=== PATIENT | female | born 1980 | race Caucasian/White ===

== ENCOUNTER → 2017-06-17 | Outpatient (CLI) | payer OTHER ==
[~2017-06-17] MED LIST: NORCOTAB PO; SENN1TAB2 PO; ZOLO100T PO
[2017-06-17 18:53] LABS: BASO % 0.6 % (0.0-1.0); EOS # 0.1 K/mm3 (0.0-0.50); EOS % 2.1 % (0.0-3.0); LARGE UNSTAINED CELL # 0.1 K/mm3 (0.0-0.4); LARGE UNSTAINED CELL % 1.2 % (0.0-4.0); LYMPH # 2.2 K/mm3 (1.5-4.5); LYMPH % 42.8 % (24.0-44.0); MEAN CORPUSCULAR HEMOGLOBIN 31.4 pg (27.0-33.0); MEAN CORPUSCULAR HGB CONC 34.2 g/dl (32.0-36.5); MEAN CORPUSCULAR VOLUME 91.6 fl (80.0-96.0); MONO # 0.2 K/mm3 (0.0-0.8); MONO % 3.5 % (0.0-5.0); NEUTROPHILS # 2.5 K/mm3 (1.8-7.7); NEUTROPHILS % 49.9 % (36.0-66.0); PLATELET COUNT, AUTOMATED 309 k/mm3 (150-450); RED CELL DISTRIBUTION WIDTH 12.4 % (11.5-14.5)
[2017-06-18 10:38] LABS: HEPATITIS B SURFACE ANTIBODY NEGATIVE (POSITIVE)
== END ==
LOC: M LAB 16:34
PROVIDERS: ATTEND Hospitalist
DX: Z00.00 Encounter for general adult medical examination without abnormal findings (principal); R53.82 Chronic fatigue, unspecified

== ENCOUNTER 2017-11-11 16:09 | Inpatient (IN) | payer OTHER, SELFPAY ==
[2017-11-11 16:51] LABS: BASO % 0.2 % (0.0-1.0); EOS # 0.1 10^3/uL (0.0-0.50); HEMATOCRIT 16.3 % (36.0-47.0); IMMATURE GRANULOCYTE % 0.2 % (0-0); LYMPH # 1.9 10^3/uL (1.5-4.5); LYMPH % 38.4 % (24.0-44.0); MEAN CORPUSCULAR HEMOGLOBIN 28.3 pg (27.0-33.0); MEAN CORPUSCULAR HGB CONC 32.5 g/dl (32.0-36.5); MEAN CORPUSCULAR VOLUME 87.2 fl (80.0-96.0); MONO # 0.2 10^3/uL (0.0-0.8); MONO % 4.5 % (0.0-5.0); NEUTROPHILS # 2.7 10^3/uL (1.8-7.7); NEUTROPHILS % 55.7 % (36.0-66.0); PLATELET COUNT, AUTOMATED 354 10^3/uL (150-450); RED BLOOD COUNT 1.87 10^6/uL (4.00-5.40); RED CELL DISTRIBUTION WIDTH 13.4 % (11.5-14.5); WHITE BLOOD COUNT 4.9 10^3/uL (4.0-10.0)
[2017-11-11 16:56] LABS: HEMOGLOBIN 5.3 g/dl (12.0-16.0)
[2017-11-11] MEDS: PANTOPRAZOLE 40MG INJ (PROTONIX) (C9113) IV (17:07)
[2017-11-11] MEDS: SODIUM CHLORIDE 0.9% 1000 ML IV (17:07)
[2017-11-11 17:08] LABS: INR 0.92; PROTHROMBIN TIME 12.4 SECONDS (12.4-14.5)
[2017-11-11 17:13] LABS: CONTROL LINE HCG INT CTR LINE PRESENT; HCG, SERUM QUALITATIVE NEGATIVE (NEGATIVE)
[2017-11-11 17:21] LABS: ALBUMIN 3.5 GM/DL (3.2-5.2); ALKALINE PHOSPHATASE 35 U/L (45-117); ALT/SGPT 26 U/L (12-78); ANION GAP 6 MEQ/L (8-16); AST/SGOT 19 U/L (7-37); BILIRUBIN,DIRECT < 0.1 MG/DL (0.0-0.2); BILIRUBIN,TOTAL 0.4 MG/DL (0.2-1.0); BLOOD UREA NITROGEN 9 MG/DL (7-18); CARBON DIOXIDE LEVEL 26 MEQ/L (21-32); CHLORIDE LEVEL 110 MEQ/L (98-107); CREATININE FOR GFR 0.82 MG/DL (0.55-1.30); GLOMERULAR FILTRATION RATE > 60.0 (>60); GLUCOSE, FASTING 85 MG/DL (70-100); POTASSIUM SERUM 3.5 MEQ/L (3.5-5.1); SODIUM LEVEL 142 MEQ/L (136-145); TOTAL PROTEIN 6.2 GM/DL (6.4-8.2)
[2017-11-11 17:45] LABS: HEMATOCRIT 16.3 % (36.0-47.0)
[2017-11-11 17:51] LABS: IRON (FE) 9 UG/DL (50-170); PERCENT SATURATION 2.1 % (13.2-45.0); TOTAL IRON BINDING CAPACITY 431 UG/DL (250-450)
[2017-11-11 18:02] LABS: RETIC HEMOGLOBIN EQUIVALENT 14.8 pg (24-36); RETICULOCYTE # 36.3 10^9/L (17-77); RETICULOCYTE % 1.8 % (0.5-1.5)
[2017-11-11 18:21] LABS: VITAMIN B12 LEVEL 384 PG/ML (247-911)
[2017-11-11] MEDS: NORCO, ANEXSIA 5/325MG TABLET (HYDROcodone/ACETAMINOPHEN) PO (19:00)
[2017-11-11] MEDS ORDERED: ONDANSETRON 4MG/2ML VIAL (J2405) IV (19:00)
[2017-11-11] MEDS ORDERED: NICOTINE 14 MG/24 HR TRANSDERMAL TD (19:30)
[2017-11-11 19:50] LABS: FERRITIN 2 NG/ML (8-252)
[2017-11-11] MEDS: GOLYTELY SOLN 4000 ML BTL PO (21:35)
[2017-11-11 23:03] LABS: IMMEDIATE SPIN CROSSMATCH 1 2
[2017-11-11 23:24] LABS: HEMATOCRIT 16.8 % (36.0-47.0)
[2017-11-11 23:25] LABS: HEMOGLOBIN 5.4 g/dl (12.0-16.0)
[2017-11-11] MEDS: ACETAMINOPHEN TAB 650MG DOSE (2X325MG) PO (23:35)
[2017-11-12 03:25] LABS: HEMATOCRIT 19.4 % (36.0-47.0); HEMOGLOBIN 6.3 g/dl (12.0-16.0); MEAN CORPUSCULAR HEMOGLOBIN 28.6 pg (27.0-33.0); MEAN CORPUSCULAR HGB CONC 32.5 g/dl (32.0-36.5); MEAN CORPUSCULAR VOLUME 88.2 fl (80.0-96.0); PLATELET COUNT, AUTOMATED 292 10^3/uL (150-450); RED CELL DISTRIBUTION WIDTH 13.5 % (11.5-14.5); WHITE BLOOD COUNT 5.5 10^3/uL (4.0-10.0)
[2017-11-12 03:33] LABS: ANION GAP 7 MEQ/L (8-16); BLOOD UREA NITROGEN 9 MG/DL (7-18); CALCIUM LEVEL 7.3 MG/DL (8.5-10.1); CARBON DIOXIDE LEVEL 25 MEQ/L (21-32); CHLORIDE LEVEL 111 MEQ/L (98-107); CREATININE FOR GFR 0.73 MG/DL (0.55-1.30); GLOMERULAR FILTRATION RATE > 60.0 (>60); GLUCOSE, FASTING 90 MG/DL (70-100); POTASSIUM SERUM 3.9 MEQ/L (3.5-5.1); SODIUM LEVEL 143 MEQ/L (136-145)
[2017-11-12] MEDS: ACETAMINOPHEN TAB 650MG DOSE (2X325MG) PO ×3 (05:11→22:34)
[2017-11-12] MEDS: GOLYTELY SOLN 4000 ML BTL PO (05:11)
[2017-11-12 06:49] LABS: IMMEDIATE SPIN CROSSMATCH 1 2
[2017-11-12 10:29] LABS: HEMATOCRIT 25.5 % (36.0-47.0)
[2017-11-12 10:37] LABS: HEMOGLOBIN 8.3 g/dl (12.0-16.0)
[2017-11-12 12:49] LABS: PRETREATED FOLATE FOR RBCFOL 8.2 NG/ML; RBC FOLATE 1056.4 NG/ML (280-791)
[2017-11-12] MEDS ORDERED: LIDOCAINE 2% INJ 100 MG/5 ML SDV (FOR ANES.) As Ordered (14:35)
[2017-11-12] MEDS ORDERED: PROPOFOL 200 MG/20 ML VIAL As Ordered ×3 (14:35→14:43)
[2017-11-12 16:10] LABS: IMMEDIATE SPIN CROSSMATCH 1 2
[2017-11-13 06:08] LABS: HEMATOCRIT 29.9 % (36.0-47.0); MEAN CORPUSCULAR HEMOGLOBIN 29.2 pg (27.0-33.0); MEAN CORPUSCULAR HGB CONC 33.4 g/dl (32.0-36.5); MEAN CORPUSCULAR VOLUME 87.2 fl (80.0-96.0); PLATELET COUNT, AUTOMATED 288 10^3/uL (150-450); RED BLOOD COUNT 3.43 10^6/uL (4.00-5.40); WHITE BLOOD COUNT 7.1 10^3/uL (4.0-10.0)
[2017-11-13 06:25] LABS: ANION GAP 7 MEQ/L (8-16); BLOOD UREA NITROGEN 11 MG/DL (7-18); CALCIUM LEVEL 7.9 MG/DL (8.5-10.1); CARBON DIOXIDE LEVEL 25 MEQ/L (21-32); CHLORIDE LEVEL 111 MEQ/L (98-107); CREATININE FOR GFR 0.66 MG/DL (0.55-1.30); GLOMERULAR FILTRATION RATE > 60.0 (>60); GLUCOSE, FASTING 86 MG/DL (70-100); POTASSIUM SERUM 3.8 MEQ/L (3.5-5.1); SODIUM LEVEL 143 MEQ/L (136-145)
[2017-11-13] MEDS: FLUoxetine 20 MG CAP PO (09:30)
[2017-11-13] MEDS: IRON DEXTRAN INJ 25 MG in NS 50 ML IV (12:43)
[2017-11-13] MEDS: IRON DEXTRAN INJ 75 MG in NS 100 ML IV (14:51)
[2017-11-13] MEDS: ACETAMINOPHEN TAB 650MG DOSE (2X325MG) PO (18:41)
[2017-11-13] MEDS: GI COCKTAIL 50ML BTL(HYOSCYAMINE/MAALOX/LIDOCAINE VISCOUS)(1:3:1) PO (18:57)
[2017-11-13] MEDS: MIRALAX *UNIT DOSE* 17GM PACKET PO (20:53)
[2017-11-13] MEDS: PANTOPRAZOLE 40MG TAB (PROTONIX) PO (20:53)
[2017-11-13 20:55] LABS: HEMATOCRIT 31.6 % (36.0-47.0); HEMOGLOBIN 10.5 g/dl (12.0-16.0); MEAN CORPUSCULAR HEMOGLOBIN 29.2 pg (27.0-33.0); MEAN CORPUSCULAR HGB CONC 33.2 g/dl (32.0-36.5); MEAN CORPUSCULAR VOLUME 87.8 fl (80.0-96.0); PLATELET COUNT, AUTOMATED 328 10^3/uL (150-450); RED CELL DISTRIBUTION WIDTH 14.2 % (11.5-14.5); WHITE BLOOD COUNT 7.9 10^3/uL (4.0-10.0)
[2017-11-13 21:29] LABS: ALBUMIN 3.3 GM/DL (3.2-5.2); ALBUMIN/GLOBULIN RATIO 1.14 (1.00-1.93); ALKALINE PHOSPHATASE 78 U/L (45-117); ALT/SGPT 108 U/L (12-78); ANION GAP 5 MEQ/L (8-16); AST/SGOT 96 U/L (7-37); BILIRUBIN,TOTAL 0.4 MG/DL (0.2-1.0); BLOOD UREA NITROGEN 10 MG/DL (7-18); CALCIUM LEVEL 7.9 MG/DL (8.5-10.1); CARBON DIOXIDE LEVEL 27 MEQ/L (21-32); CHLORIDE LEVEL 110 MEQ/L (98-107); CREATININE FOR GFR 0.84 MG/DL (0.55-1.30); GLOMERULAR FILTRATION RATE > 60.0 (>60); GLUCOSE, FASTING 105 MG/DL (70-100); POTASSIUM SERUM 4.3 MEQ/L (3.5-5.1); SODIUM LEVEL 142 MEQ/L (136-145); TOTAL PROTEIN 6.2 GM/DL (6.4-8.2)
[2017-11-14] MEDS: ACETAMINOPHEN TAB 650MG DOSE (2X325MG) PO (05:46)
[2017-11-14 06:27] LABS: HEMATOCRIT 29.6 % (36.0-47.0); HEMOGLOBIN 9.7 g/dl (12.0-16.0); MEAN CORPUSCULAR HGB CONC 32.8 g/dl (32.0-36.5); MEAN CORPUSCULAR VOLUME 88.6 fl (80.0-96.0); PLATELET COUNT, AUTOMATED 272 10^3/uL (150-450); RED BLOOD COUNT 3.34 10^6/uL (4.00-5.40); RED CELL DISTRIBUTION WIDTH 14.1 % (11.5-14.5); WHITE BLOOD COUNT 5.7 10^3/uL (4.0-10.0)
[2017-11-14 06:41] LABS: ANION GAP 6 MEQ/L (8-16); BLOOD UREA NITROGEN 12 MG/DL (7-18); CALCIUM LEVEL 8.2 MG/DL (8.5-10.1); CARBON DIOXIDE LEVEL 27 MEQ/L (21-32); CHLORIDE LEVEL 110 MEQ/L (98-107); CREATININE FOR GFR 0.69 MG/DL (0.55-1.30); GLOMERULAR FILTRATION RATE > 60.0 (>60); GLUCOSE, FASTING 100 MG/DL (70-100); POTASSIUM SERUM 4.5 MEQ/L (3.5-5.1); SODIUM LEVEL 143 MEQ/L (136-145)
[2017-11-14] MEDS: FLUoxetine 20 MG CAP PO (10:08)
[2017-11-14] MEDS: MIRALAX *UNIT DOSE* 17GM PACKET PO (10:08)
[2017-11-14] MEDS ORDERED: ANUSOL HC CREAM 30GM TOP (21:00)
== END 2017-11-14 15:19 | disposition home or self-care (01) | DRG 253 ==
LOC: M ED 16:09 → M ED INP 18:57 → M MSPAV 20:05
PROC: 0DB98ZX Excision of Duodenum, Via Natural or Artificial Opening Endoscopic, Diagnostic (ICD-10-PCS; 2017-11-12 14:05)
PROC: 0DJD8ZZ Inspection of Lower Intestinal Tract, Via Natural or Artificial Opening Endoscopic (ICD-10-PCS; 2017-11-12 14:05)
PROC: 30233N1 Transfusion of Nonautologous Red Blood Cells into Peripheral Vein, Percutaneous Approach (ICD-10-PCS; principal; 2017-11-12 14:18)
DX: K62.5 Hemorrhage of anus and rectum (principal); F32.9 Major depressive disorder, single episode, unspecified; F17.200 Nicotine dependence, unspecified, uncomplicated; K64.2 Third degree hemorrhoids; K59.00 Constipation, unspecified; D62 Acute posthemorrhagic anemia

== ENCOUNTER → 2017-11-11 | Outpatient (CLI) | payer OTHER | LOC: M ADAMS 10:40 | DX: R06.02 Shortness of breath (principal) | CPT/HCPCS: 71046 ==

== ENCOUNTER → 2017-11-11 | Outpatient (REF) | payer OTHER ==
[2017-11-11 14:55] LABS: BASO % 0.4 % (0.0-1.0); EOS # 0.1 10^3/uL (0.0-0.50); EOS % 1.6 % (0.0-3.0); HEMATOCRIT 16.2 % (36.0-47.0); IMMATURE GRANULOCYTE % 0.2 % (0-0); LYMPH # 1.7 10^3/uL (1.5-4.5); LYMPH % 35.2 % (24.0-44.0); MEAN CORPUSCULAR HGB CONC 31.5 g/dl (32.0-36.5); MONO # 0.3 10^3/uL (0.0-0.8); MONO % 5.5 % (0.0-5.0); NEUTROPHILS # 2.8 10^3/uL (1.8-7.7); NEUTROPHILS % 57.1 % (36.0-66.0); PLATELET COUNT, AUTOMATED 370 10^3/uL (150-450); RED BLOOD COUNT 1.82 10^6/uL (4.00-5.40); RED CELL DISTRIBUTION WIDTH 13.5 % (11.5-14.5); WHITE BLOOD COUNT 4.9 10^3/uL (4.0-10.0)
[2017-11-11 15:04] LABS: HEMOGLOBIN 5.1 g/dl (12.0-16.0)
[2017-11-11 15:55] LABS: ALBUMIN 3.5 GM/DL (3.2-5.2); ALBUMIN/GLOBULIN RATIO 1.46 (1.00-1.93); ALKALINE PHOSPHATASE 32 U/L (45-117); ALT/SGPT 24 U/L (12-78); ANION GAP 8 MEQ/L (8-16); AST/SGOT 19 U/L (7-37); BILIRUBIN,TOTAL 0.4 MG/DL (0.2-1.0); BLOOD UREA NITROGEN 11 MG/DL (7-18); CARBON DIOXIDE LEVEL 25 MEQ/L (21-32); CHLORIDE LEVEL 109 MEQ/L (98-107); CREATININE FOR GFR 0.84 MG/DL (0.55-1.30); GLOMERULAR FILTRATION RATE > 60.0 (>60); GLUCOSE, FASTING 90 MG/DL (70-100); POTASSIUM SERUM 4.3 MEQ/L (3.5-5.1); SODIUM LEVEL 142 MEQ/L (136-145); TOTAL PROTEIN 5.9 GM/DL (6.4-8.2)
== END ==
LOC: M LABDRWAD 13:46
DX: R06.02 Shortness of breath (principal)

== ENCOUNTER → 2018-01-20 | Outpatient (REF) | payer OTHER ==
[2018-01-20 15:26] LABS: BASO % 0.4 % (0.0-1.0); EOS # 0.1 10^3/uL (0.0-0.50); HEMATOCRIT 38.3 % (36.0-47.0); HEMOGLOBIN 12.9 g/dl (12.0-15.5); IMMATURE GRANULOCYTE % 0.2 % (0-3.0); LYMPH # 2.1 10^3/uL (1.5-4.5); LYMPH % 40.4 % (24.0-44.0); MEAN CORPUSCULAR HEMOGLOBIN 29.9 pg (27.0-33.0); MEAN CORPUSCULAR HGB CONC 33.7 g/dl (32.0-36.5); MEAN CORPUSCULAR VOLUME 88.7 fl (80.0-96.0); MONO # 0.3 10^3/uL (0.0-0.8); MONO % 5.5 % (0.0-5.0); NEUTROPHILS # 2.6 10^3/uL (1.8-7.7); NEUTROPHILS % 51.5 % (36.0-66.0); PLATELET COUNT, AUTOMATED 235 10^3/uL (150-450); RED BLOOD COUNT 4.32 10^6/uL (4.00-5.40); RED CELL DISTRIBUTION WIDTH 14.8 % (11.5-14.5); WHITE BLOOD COUNT 5.1 10^3/uL (4.0-10.0)
[2018-01-20 15:40] LABS: FERRITIN 16 NG/ML (8-252); IRON (FE) 165 UG/DL (50-170); PERCENT SATURATION 46.6 % (13.2-45.0); TOTAL IRON BINDING CAPACITY 354 UG/DL (250-450)
[2018-01-22 08:07] LABS: TRANSFERRIN 270 mg/dL (200-370)
[2018-01-26 00:06] LABS: IgA ULTRASENSITIVE 127.6 mg/dL (72-321)
== END ==
LOC: M LABDRAW1 13:42
DX: K92.2 Gastrointestinal hemorrhage, unspecified (principal)

== ENCOUNTER 2018-07-10 14:07 | Emergency (ER) | payer OTHER ==
[2018-07-10] MEDS: MECLIZINE 25 MG TABLET PO (14:49)
[2018-07-10] MEDS: NS 1,000 ML IV (14:49)
[2018-07-10 14:53] LABS: BASO % 0.6 % (0.0-1.0); EOS % 0.6 % (0.0-3.0); HEMATOCRIT 30.6 % (36.0-47.0); IMMATURE GRANULOCYTE % 0.4 % (0-3.0); LYMPH # 1.5 10^3/uL (1.5-4.5); LYMPH % 27.6 % (24.0-44.0); MEAN CORPUSCULAR HEMOGLOBIN 29.3 pg (27.0-33.0); MEAN CORPUSCULAR HGB CONC 32.7 g/dl (32.0-36.5); MEAN CORPUSCULAR VOLUME 89.7 fl (80.0-96.0); MONO # 0.4 10^3/uL (0.0-0.8); MONO % 7.1 % (0.0-5.0); NEUTROPHILS # 3.4 10^3/uL (1.8-7.7); NEUTROPHILS % 63.7 % (36.0-66.0); PLATELET COUNT, AUTOMATED 378 10^3/uL (150-450); RED BLOOD COUNT 3.41 10^6/uL (4.00-5.40); RED CELL DISTRIBUTION WIDTH 11.8 % (11.5-14.5); WHITE BLOOD COUNT 5.4 10^3/uL (4.0-10.0)
[2018-07-10 15:03] LABS: BEDSIDE GLUCOSE 188 MG/DL (70-105)
[2018-07-10 15:04] LABS: INR 0.97
[2018-07-10 15:23] LABS: ANION GAP 11 MEQ/L (8-16); BLOOD UREA NITROGEN 16 MG/DL (7-18); CALCIUM LEVEL 8.8 MG/DL (8.5-10.1); CARBON DIOXIDE LEVEL 22 MEQ/L (21-32); CHLORIDE LEVEL 107 MEQ/L (98-107); CK-MB VALUE MASS < 1.0 NG/ML (<3.6); CPK CREATINE PHOSPHOKINASE 44 U/L (26-192); CREATININE FOR GFR 0.85 MG/DL (0.55-1.30); GLOMERULAR FILTRATION RATE > 60.0 (>60); GLUCOSE, FASTING 123 MG/DL (70-100); MB/CK RELATIVE INDEX 2.27 (< OR =4); SODIUM LEVEL 140 MEQ/L (136-145); THYROID STIMULATING HORMONE 0.149 uIU/ML (0.358-3.740); TROPONIN I < 0.02 NG/ML (< 0.10)
== END 2018-07-10 16:13 | disposition home or self-care (01) ==
LOC: M ED 14:07
DX: R42 Dizziness and giddiness (principal); H83.09 Labyrinthitis, unspecified ear; R06.02 Shortness of breath; D64.9 Anemia, unspecified; F17.200 Nicotine dependence, unspecified, uncomplicated; Z79.899 Other long term (current) drug therapy
CPT/HCPCS: 93005

== ENCOUNTER → 2019-03-10 | Outpatient (CLI) | payer OTHER ==
[~2019-03-10] MED LIST changes: +ACET-897 PO; +ARIP1TAB4; +EFFE75CA2 PO; +FERR1TAB8 PO; +FERR325T3 PO; +FLUO20CA8 PO; +HYDR-3715 PO; +IBUPOTC PO; +MECL-68 PO; +NICO14PA TD; -NORCOTAB PO; +PROC1CRE5 TOP; -SENN1TAB2 PO; +SENN1TAB40 PO; +TYLE500T78 PO; +VENL75CA2 PO
[2019-03-10 17:10] LABS: BASO % 0.6 % (0.0-1.0); EOS # 0.1 10^3/uL (0.0-0.50); EOS % 1.7 % (0.0-3.0); HEMATOCRIT 26.8 % (36.0-47.0); HEMOGLOBIN 7.1 g/dl (12.0-15.5); LYMPH # 2.2 10^3/uL (1.5-4.5); MEAN CORPUSCULAR HEMOGLOBIN 17.8 pg (27.0-33.0); MEAN CORPUSCULAR HGB CONC 26.5 g/dl (32.0-36.5); MEAN CORPUSCULAR VOLUME 67.3 fl (80.0-96.0); MONO # 0.3 10^3/uL (0.0-0.8); MONO % 6.6 % (0.0-5.0); NEUTROPHILS # 2.2 10^3/uL (1.8-7.7); NEUTROPHILS % 45.9 % (36.0-66.0); PLATELET COUNT, AUTOMATED 363 10^3/uL (150-450); RED BLOOD COUNT 3.98 10^6/uL (4.00-5.40); WHITE BLOOD COUNT 4.8 10^3/uL (4.0-10.0)
[2019-03-10 17:35] LABS: C REACTIVE PROTEIN QUANTITATIV < 0.30 MG/DL (0.00-0.30); RHEUMATOID FACTOR QUANT < 10.0 IU/ML (<15.0)
[2019-03-10 17:39] LABS: ERYTHROCYTE SEDIMENTATION RATE 6 mm/hr (0-20)
[2019-03-16 14:51] LABS: ANTI DS-DNA AB <1:10 titer (.); ANTINUCLEAR ANTIBODIES DIRECT Negative (Negative)
== END ==
LOC: M WUC 15:19
PROVIDERS: ATTEND Hospitalist
DX: M25.50 Pain in unspecified joint (principal)

== ENCOUNTER 2019-03-14 09:14 | Emergency (ER) | payer OTHER ==
[~2019-03-14] VITALS: Ht 167.6 cm; Wt 87.4 kg
[~2019-03-14 09:14] MED LIST changes: -ACET-897 PO; -FERR1TAB8 PO; -VENL75CA2 PO
[2019-03-14] MEDS ORDERED: ACETAMINOPHEN TAB 650MG DOSE (2X325MG) PO ONE (10:15)
[2019-03-14 10:47] LABS: MEAN CORPUSCULAR HEMOGLOBIN 17.2 pg (27.0-33.0); MEAN CORPUSCULAR HGB CONC 25.8 g/dl (32.0-36.5); MEAN CORPUSCULAR VOLUME 66.5 fl (80.0-96.0); PLATELET COUNT, AUTOMATED 397 10^3/uL (150-450); RED BLOOD COUNT 4.66 10^6/uL (4.00-5.40); WHITE BLOOD COUNT 4.6 10^3/uL (4.0-10.0)
[2019-03-14 11:40] VITALS: BP 133/67
[2019-03-16 00:09] LABS: Lyme Disease IgG/IgM Antibodie <0.91 ISR (0.00-0.90); Lyme Disease IgM Ab Quantitati <0.80 index (0.00-0.79)
== END 2019-03-14 11:41 | disposition home or self-care (01) ==
LOC: M ED 09:14
DX: D64.9 Anemia, unspecified (principal); M25.50 Pain in unspecified joint; K21.9 Gastro-esophageal reflux disease without esophagitis; K59.00 Constipation, unspecified; J45.909 Unspecified asthma, uncomplicated; F41.9 Anxiety disorder, unspecified; F32.9 Major depressive disorder, single episode, unspecified; Z77.098 Contact with and (suspected) exposure to other hazardous, chiefly nonmedicinal, chemicals; Z82.69 Family history of other diseases of the musculoskeletal system and connective tissue; Z82.61 Family history of arthritis; Z82.49 Family history of ischemic heart disease and other diseases of the circulatory system

== ENCOUNTER 2019-03-16 20:21 | Inpatient (IN) | payer OTHER ==
[~2019-03-16] VITALS: Ht 167.6 cm; Wt 84.7 kg
[2019-03-16] MEDS ORDERED: VENLAFAXINE **XR** 75MG CAPSULE PO SCH (21:00)
[2019-03-16 21:03] LABS: BASO % 0.6 % (0.0-1.0); EOS # 0.1 10^3/uL (0.0-0.50); EOS % 1.3 % (0.0-3.0); HEMATOCRIT 30.2 % (36.0-47.0); LYMPH # 2.7 10^3/uL (1.5-4.5); LYMPH % 42.1 % (24.0-44.0); MEAN CORPUSCULAR HEMOGLOBIN 17.9 pg (27.0-33.0); MEAN CORPUSCULAR HGB CONC 26.5 g/dl (32.0-36.5); MEAN CORPUSCULAR VOLUME 67.4 fl (80.0-96.0); MONO # 0.4 10^3/uL (0.0-0.8); MONO % 5.6 % (0.0-5.0); NEUTROPHILS # 3.2 10^3/uL (1.8-7.7); NEUTROPHILS % 50.2 % (36.0-66.0); PLATELET COUNT, AUTOMATED 435 10^3/uL (150-450); RED BLOOD COUNT 4.48 10^6/uL (4.00-5.40); WHITE BLOOD COUNT 6.4 10^3/uL (4.0-10.0)
[2019-03-16 21:21] LABS: ALBUMIN 3.9 GM/DL (3.2-5.2); ALT/SGPT 21 U/L (12-78); BILIRUBIN,TOTAL 0.2 MG/DL (0.2-1.0); BLOOD UREA NITROGEN 13 MG/DL (7-18); CALCIUM LEVEL 8.3 MG/DL (8.5-10.1); CARBON DIOXIDE LEVEL 25 MEQ/L (21-32); CHLORIDE LEVEL 109 MEQ/L (98-107); CREATININE FOR GFR 0.77 MG/DL (0.55-1.30); GLOMERULAR FILTRATION RATE > 60.0 (>60); GLUCOSE, FASTING 96 MG/DL (70-100); POTASSIUM SERUM 4.4 MEQ/L (3.5-5.1); SODIUM LEVEL 141 MEQ/L (136-145); TOTAL PROTEIN 7.3 GM/DL (6.4-8.2)
[2019-03-16] MEDS ORDERED: ISOVUE-370 76% 100ML VIAL (Q9967) As Ordered ONE (21:29)
[2019-03-16 21:36] LABS: INR 0.93; PARTIAL THROMBOPLASTIN TIME 23.6 SECONDS (25.4-37.6); PROTHROMBIN TIME 12.6 SECONDS (12.1-14.4)
[2019-03-16 21:38] LABS: MAGNESIUM LEVEL 2.4 MG/DL (1.8-2.4)
--- NOTE | 2019-03-16 23:06 | REPVR ---
EXAM: CT Abdomen and Pelvis With Contrast EXAM DATE/TIME: 03/16/2019 9:41 PM CLINICAL HISTORY: 38 years old, female; Abdominal pain; Localized; Left lower quadrant (llq); Additional info: Llq pain/dec h/h TECHNIQUE: Imaging protocol: Axial computed tomography images of the abdomen and pelvis with intravenous contrast. Coronal and sagittal reformatted images were created and reviewed. Radiation optimization: All CT scans at this facility use at least one of these dose optimization techniques: automated exposure control; mA and/or kV adjustment per patient size (includes targeted exams where dose is matched to clinical indication); or iterative reconstruction. Contrast material: ISOVUE 370; Contrast volume: 100 ml; Contrast route: IV; COMPARISON: CT ABD PELVIS WITH CONTRAST 05/17/2016 12:04 PM FINDINGS: ABDOMEN: Liver: Unremarkable. Gallbladder and bile ducts: No radiodense gallstones. No biliary ductal dilatation. Pancreas: Unremarkable. Spleen: Unremarkable. Adrenals: Unremarkable. Kidneys and ureters: No mass. No radiodense calculi. No hydronephrosis. Stomach and bowel: Moderate amount of retained stool in the colon. No obstruction. No bowel wall thickening. No pneumatosis. Appendix: Appendix not identified with certainty but no right lower quadrant inflammatory change to suggest acute appendicitis. PELVIS: Bladder: Unremarkable. Reproductive: Probable involuting right ovarian corpus luteal cyst. Intrauterine device in adequate position. ABDOMEN and PELVIS: Intraperitoneal space: Trace nonspecific free pelvic fluid, likely physiologic. No organized fluid collection. No free air. Bones/joints: No acute osseous abnormality. Mild degenerative changes. Soft tissues: Unremarkable. Vasculature: Unremarkable. No aneurysm. Lymph nodes: No pathologically enlarged lymph nodes. IMPRESSION: 1. No CT evidence of acute intra-abdominal or pelvic pathology. 2. Additional findings, as above. Electronically signed by: Johnson Nicole On 03/16/2019 23:05:39 PM
[2019-03-17] VITALS (8 sets, daily range): BP systolic 123–149; BP diastolic 58–88
--- NOTE | 2019-03-17 01:42 | REP ---
Clinical: Chest pain and dizziness . Comparison: 11/11/2017 . Technique: PA and lateral. Findings: The mediastinum and cardiac silhouette are normal. The lung brandon are clear and without acute consolidation, effusion, or pneumothorax. The skeletal structures are intact and normal. Impression: 1. No acute cardiopulmonary process. Electronically Signed by Noel Evans MD 03/17/2019 01:33 A
[2019-03-17] MEDS ORDERED: FERR1TAB8 PO (02:01)
[2019-03-17] MEDS ORDERED: ACET-897 PO (02:01)
[2019-03-17] MEDS ORDERED: VENL75CA2 PO (02:01)
--- NOTE | 2019-03-17 03:14 | HPEPDOC ---
[facility] Medical History & Physical Date of Admission Mar 17, 2019 Date of Service: Mar 17, 2019 History and Physical CHIEF COMPLAINT: weakness and joint pain HISTORY OF PRESENT ILLNESS: Patient is a 38-year-old female with no significant past medical history presented to ER with complaints of generalized weakness and diffuse joint pains. She was found to have a Hb 8 which was downtrending in the past year from 12. Denies any noticable GI bleeding or excessive menstrual bleed. States that she has recently been started on iron supplements and that cause her to have abdominal discomfort every time she eats. Has been worse for the past 2 weeks and decided to come in today. Denies any recent travels or sick contact. States that she had been tested for Lyme at one point and has been told it was negative. PAST MEDICAL HISTORY: Refer to [facility] PAST SURGICAL HISTORY: Appendectomy SOCIAL HISTORY: Denies tobacco, alcohol or illicit drug use. FAMILY HISTORY: Mother has DM and Rheumatoid arthritis ALLERGIES: Please see below. REVIEW OF SYSTEMS: 10 point review of system negative except as stated in [facility] HOME MEDICATIONS: Please see below. PHYSICAL EXAMINATION: General: Weak but no significant distress Eyes: Normal sclera, EOMI, ANÍBAL HENT: Atraumatic, neck supple, moist mucous membranes Cardiovascular: Normal rate, normal rhythm. Pulmonary: Clear to auscultation b/l, no wheezing GI: Soft, nontender, nondistended Skin: Warm and dry Neuro: CN grossly intact. No focal deficits. Strengths equal b/l. Psych: oriented x 3 LABORATORY DATA: See below. IMAGING: CT abdomen- IMPRESSION: 1. No CT evidence of acute intra-abdominal or pelvic pathology. 2. Additional findings, as above. MICROBIOLOGY: Please see below. ASSESSMENT AND PLAN: 1. Symptomatic Anemia - MCV 67, likely iron deficiency but cannot tolerate iron. - Obtain anemia workup including folate and vit B12. - Transfuse 2 units. - Monitor H/H. No bleed noted. 2. Polyathralgia - Will recheck for Lyme. Has had previous testing. - Hepatitis panel, ESR, and STD panel. DVT ppx: SCD Code status: Full code Vital Signs Vital Signs Date Time Temp Pulse Resp B/P (MAP) Pulse Ox O2 Delivery O2 Flow Rate FiO2 03/16/19 21:51 76 145/72 (96) 76 153/83 (106) 69 154/83 (106) 03/16/19 20:21 97.6 16 100 Room Air Laboratory Data Labs 24H Laboratory Tests 2 03/16/19 20:51: Immature Granulocyte % (Auto) 0.2, White Blood Count 6.4, Red Blood Count 4.48, Hemoglobin 8.0L, Hematocrit 30.2L, Mean Corpuscular Volume 67.4L, Mean Corpuscular Hemoglobin 17.9L, Mean Corpuscular Hemoglobin Concent 26.5L, Red Cell Distribution Width 21.4H, Platelet Count 435, Neutrophils (%) (Auto) 50.2, Lymphocytes (%) (Auto) 42.1, Monocytes (%) (Auto) 5.6H, Eosinophils (%) (Auto) 1.3, Basophils (%) (Auto) 0.6, Neutrophils # (Auto) 3.2, Lymphocytes # (Auto) 2.7, Monocytes # (Auto) 0.4, Eosinophils # (Auto) 0.1, Basophils # (Auto) 0.0, Nucleated Red Blood Cells % (auto) 0.0, Prothrombin Time 12.6, Prothromb Time International Ratio 0.93, Activated Partial Thromboplast Time 23.6L, Anion Gap 7L, Glomerular Filtration Rate > 60.0, Blood Urea Nitrogen 13, Creatinine 0.77, Sodium Level 141, Potassium Level 4.4, Chloride Level 109H, Carbon Dioxide Level 25, Calcium Level 8.3L, Aspartate Amino Transf (AST/SGOT) 14, Alanine Aminotransferase (ALT/SGPT) 21, Alkaline Phosphatase 41L, Total Bilirubin 0.2, Total Protein 7.3, Albumin 3.9, Magnesium Level 2.4, Albumin/Globulin Ratio 1.15 03/16/19 20:55: POC Beta HCG, Quantitative < 5.0 03/16/19 22:05: 03/16/19 22:14: Urine Color STRAW, Urine Appearance CLEAR, Urine pH 5.0, Urine Specific [place] 1.047, Urine Protein NEGATIVE, Urine Glucose (UA) NEGATIVE, Urine Ketones NEGATIVE, Urine Blood NEGATIVE, Urine Nitrite NEGATIVE, Urine Bilirubin NEGATIVE, Urine Urobilinogen 0.2, Urine Leukocyte Esterase NEGATIVE, Urine WBC (Auto) 1, Urine RBC (Auto) 1, Urine Hyaline Casts (Auto) 0, Urine Bacteria (Auto) NEGATIVE, Urine Squamous Epithelial Cells 1, Urine Sperm (Auto) CBC/BMP Laboratory Tests 03/16/19 20:51 Red Blood Count 4.48, Mean Corpuscular Volume 67.4 L, Mean Corpuscular Hemoglobin 17.9 L, Mean Corpuscular Hemoglobin Concent 26.5 L, Red Cell Distribution Width 21.4 H, Neutrophils (%) (Auto) 50.2, Lymphocytes (%) (Auto) 42.1, Monocytes (%) (Auto) 5.6 H, Eosinophils (%) (Auto) 1.3, Basophils (%) (Auto) 0.6, Neutrophils # (Auto) 3.2, Lymphocytes # (Auto) 2.7, Monocytes # (Auto) 0.4, Eosinophils # (Auto) 0.1, Basophils # (Auto) 0.0, Calcium Level 8.3 L, Aspartate Amino Transf (AST/SGOT) 14, Alanine Aminotransferase (ALT/SGPT) 21, Alkaline Phosphatase 41 L, Total Bilirubin 0.2, Total Protein 7.3, Albumin 3.9 Home Medications Scheduled Ferrous Sulfate (Ferrous Sulfate) 325 Mg Tablet, 325 MG PO QHS Venlafaxine HCl (Venlafaxine HCl ER) 75 Mg Cap.er.24h, 150 MG PO QHS Scheduled PRN Acetaminophen (Tylenol Extra Strength) 500 Mg Tablet, 1,000 MG PO Q6H PRN for PAIN TOOK 3 TABS FOR LAST DOSE Allergies Coded Allergies: No Known Allergies (Verified , 04/16/03) A-FIB/CHADSVASC A-FIB History Current/History of A-Fib/PAF?: No JIE WARD MD Mar 17, 2019 03:14
[2019-03-17] MEDS: ACETAMINOPHEN TAB 650MG DOSE (2X325MG) PO PRN ×2 (05:59→15:03)
--- NOTE | 2019-03-17 12:13 | IPNPDOC ---
Text Note Date of Service The patient was seen on 03/17/19. NOTE Maya is seen on bedside rounds this morning, she is laying in bed ordering breakfast on her hospital phone. She states that she feels very tired, she has continued wrist and elbow and hip discomfort. She denies cp, sob, abdominal pain, n/v. ROS 12 point ROS reviewed with patient and neg except for above findings. SUBJECTIVE: Patient is a 38 yo female laying in bed, tired but otherwise patient denies chest pain, shortness breath, nausea, vomiting, fevers, chills OBJECTIVE PHYSICAL EXAMINATION: VITAL SIGNS: Please see below. GENERAL: Pleasant 38 yo female laying in bed awake alert oriented speaking in complete sentences no acute distress HEENT: Moist mucous membranes no elevation and CVP, EOMI CARDIOVASCULAR: S1 S2 regular no additional heart sounds appreciated RESPIRATORY: Clear to auscultation bilaterally without rales, rhonchi or wheezing ABDOMINAL: Bowel sounds present abdomen soft and nontender, no hepatosplenomegaly, no masses appreciated, nabsx4, no distension, no rebound ridgity or guarding EXTREMITIES: No clubbing cyanosis or edema NEUROLOGICAL: Spontaneously moves all 4 extremities,no gross focal deficits appreciated PSYCHOLOGICAL: Appropriate affect LABORATORY DATA, MICROBIOLOGY: Please see below. ASSESSMENT AND PLAN: This is a 38-year-old female who came in for fatigue, joint pain and weakness and found to be anemic. PROBLEMS: 1. Weakness - possibly 2/2 symptomatic anemia - possibly 2/2 Iron deficiency -likely due to low iron, we will c/w transfusion at this point, h/h stable, continue to monitor, iron studies pending, she should begin bowel regime so she can tolerate iron on outpt d/c -protein c,s factor v leiden and Vwf pending -FOBT is ordered and pending, do not suspect GI bleed, pt denies black stool, blood in stool, coughing/vomiting up blood, no blood in urine - will repeat CBC post transfusion 2. Polyarthralgia - patient has had a rheumatologic work up completed recently - CANDI negative; Lyme negative - will check CRP and trend - Will start the patient on prednisone and taper gradually - Will advise outpatient follow up with Rheumatology 3. Depression -c/w Effexor VS,Fishbone, I+O VS, Fishbone, I+O Laboratory Tests 03/16/19 20:51 Red Blood Count 4.48, Mean Corpuscular Volume 67.4 L, Mean Corpuscular Hemoglobin 17.9 L, Mean Corpuscular Hemoglobin Concent 26.5 L, Red Cell Distribution Width 21.4 H, Neutrophils (%) (Auto) 50.2, Lymphocytes (%) (Auto) 42.1, Monocytes (%) (Auto) 5.6 H, Eosinophils (%) (Auto) 1.3, Basophils (%) (Auto) 0.6, Neutrophils # (Auto) 3.2, Lymphocytes # (Auto) 2.7, Monocytes # (Auto) 0.4, Eosinophils # (Auto) 0.1, Basophils # (Auto) 0.0, Calcium Level 8.3 L, Aspartate Amino Transf (AST/SGOT) 14, Alanine Aminotransferase (ALT/SGPT) 21, Alkaline Phosphatase 41 L, Total Bilirubin 0.2, Total Protein 7.3, Albumin 3.9 Vital Signs Date Time Temp Pulse Resp B/P (MAP) Pulse Ox O2 Delivery O2 Flow Rate FiO2 03/17/19 10:30 98.7 77 16 123/58 (79) 99 03/17/19 03:38 Room Air I&O- Last 24 Hours up to 6 AM 03/17/19 06:00 Intake Total 360 ml Output Total 0 ml Balance 360 ml GME ATTESTATION GME ATTESTATION My faculty preceptor for this patient encounter was physically present during the encounter and was fully available. All aspects of the patient interview, examination, medical decision making process, and medical care plan development were reviewed and approved by the faculty preceptor. The faculty preceptor is aware and concurs with the plan as stated in the body of this note and will attest to such by his/her cosignature. ATTENDING NOTE I, Radha Ramos, have both independently examined this patient as well as reviewed the documentation. I have discussed in detail with the resident the findings and plan of treatment as documented by the resident. I agree with their findings and treatment plan. I will continue to follow the patient and offer further guidance to the patients care as necessary during this hospital stay. RIRI STEWART DO Mar 17, 2019 12:13 RADHA RAMOS MD Mar 17, 2019 14:08
[2019-03-17 12:35] LABS: CHLAMYDIA DNA AMPLIFICATION NEGATIVE (NEGATIVE); GC DNA AMPLIFICATION NEGATIVE (NEGATIVE)
[2019-03-17 15:17] LABS: BASO % 0.5 % (0.0-1.0); EOS # 0.1 10^3/uL (0.0-0.50); EOS % 2.4 % (0.0-3.0); HEMATOCRIT 36.2 % (36.0-47.0); HEMOGLOBIN 10.4 g/dl (12.0-15.5); LYMPH # 2.3 10^3/uL (1.5-4.5); LYMPH % 41.1 % (24.0-44.0); MEAN CORPUSCULAR HEMOGLOBIN 20.7 pg (27.0-33.0); MEAN CORPUSCULAR HGB CONC 28.7 g/dl (32.0-36.5); MEAN CORPUSCULAR VOLUME 72.1 fl (80.0-96.0); MONO # 0.3 10^3/uL (0.0-0.8); MONO % 5.6 % (0.0-5.0); NEUTROPHILS # 2.8 10^3/uL (1.8-7.7); NEUTROPHILS % 50.2 % (36.0-66.0); PLATELET COUNT, AUTOMATED 396 10^3/uL (150-450); RED BLOOD COUNT 5.02 10^6/uL (4.00-5.40); WHITE BLOOD COUNT 5.5 10^3/uL (4.0-10.0)
[2019-03-17 15:48] LABS: BLOOD UREA NITROGEN 13 MG/DL (7-18); CALCIUM LEVEL 8.3 MG/DL (8.5-10.1); CARBON DIOXIDE LEVEL 26 MEQ/L (21-32); CHLORIDE LEVEL 110 MEQ/L (98-107); CREATININE FOR GFR 0.81 MG/DL (0.55-1.30); FERRITIN 4 NG/ML (8-252); GLOMERULAR FILTRATION RATE > 60.0 (>60); GLUCOSE, FASTING 121 MG/DL (70-100); IRON (FE) 18 UG/DL (50-170); MAGNESIUM LEVEL 2.2 MG/DL (1.8-2.4); PERCENT SATURATION 3.6 % (13.2-45.0); POTASSIUM SERUM 4.7 MEQ/L (3.5-5.1); SODIUM LEVEL 142 MEQ/L (136-145); TOTAL IRON BINDING CAPACITY 497 UG/DL (250-450)
[2019-03-17 15:56] LABS: FOLATE 10.9 NG/ML (>5.4); VITAMIN B12 LEVEL 581 PG/ML (247-911)
[2019-03-17 15:58] LABS: ERYTHROCYTE SEDIMENTATION RATE 3 mm/hr (0-20)
[2019-03-17] MEDS: predniSONE 20 MG TAB PO SCH (16:01)
[2019-03-17 16:35] LABS: HEPATITIS B SURFACE ANTIBODY NEGATIVE (POSITIVE); HEPATITIS B SURFACE ANTIGEN NEGATIVE (NEGATIVE); HEPATITIS C VIRUS ABY INDEX < 0.0 INDEX (<0.8); HIV 1&2 SCREEN CENTAUR NEGATIVE (NEGATIVE)
[2019-03-17] MEDS ORDERED: VENLAFAXINE **XR** 75MG CAPSULE PO SCH (21:00)
[2019-03-18 06:00] VITALS: BP 109/59
[2019-03-18 07:29] LABS: BASO % 0.4 % (0.0-1.0); EOS % 0.3 % (0.0-3.0); HEMATOCRIT 35.1 % (36.0-47.0); LYMPH # 2.5 10^3/uL (1.5-4.5); LYMPH % 31.8 % (24.0-44.0); MEAN CORPUSCULAR HEMOGLOBIN 19.9 pg (27.0-33.0); MEAN CORPUSCULAR HGB CONC 28.5 g/dl (32.0-36.5); MEAN CORPUSCULAR VOLUME 69.8 fl (80.0-96.0); MONO # 0.6 10^3/uL (0.0-0.8); MONO % 7.5 % (0.0-5.0); NEUTROPHILS # 4.8 10^3/uL (1.8-7.7); NEUTROPHILS % 59.7 % (36.0-66.0); PLATELET COUNT, AUTOMATED 384 10^3/uL (150-450); RED BLOOD COUNT 5.03 10^6/uL (4.00-5.40)
[2019-03-18 07:52] LABS: BLOOD UREA NITROGEN 13 MG/DL (7-18); CALCIUM LEVEL 8.9 MG/DL (8.5-10.1); CARBON DIOXIDE LEVEL 25 MEQ/L (21-32); CHLORIDE LEVEL 110 MEQ/L (98-107); CREATININE FOR GFR 0.69 MG/DL (0.55-1.30); GLOMERULAR FILTRATION RATE > 60.0 (>60); GLUCOSE, FASTING 94 MG/DL (70-100); POTASSIUM SERUM 4.4 MEQ/L (3.5-5.1); SODIUM LEVEL 141 MEQ/L (136-145)
[2019-03-18] MEDS ORDERED: PRED10TA2 PO (08:10)
--- NOTE | 2019-03-18 08:32 | ECGEPIP ---
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
[2019-03-18] MEDS: predniSONE 20 MG TAB PO SCH (09:48)
--- NOTE | 2019-03-18 16:00 | DS.PDOC ---
Discharge Summary General Date of Admission Mar 17, 2019 at 02:42 Date of Discharge 6 Discharge Summary PROCEDURES PERFORMED DURING STAY: None ADMITTING DIAGNOSES / DISCHARGE DIAGNOSES: 1. Polyarthralgia - possibly 2/2 seronegative arthralgia 2. Symptomatic anemia - s/p transfusions with 2 units PRBC 3. Iron deficiency anemia - c/w Ferrous sulfate COMPLICATIONS/CHIEF COMPLAINT: Arthralgia; Symptomatic Anemia. HISTORY OF PRESENT ILLNESS: HOSPITAL COURSE: Ms. Greenberg is a 38 yo female who presented to the ED with complaints of generalized weakness and diffuse joint pains, she was found to navarro ve a Hg of 8 on presentation. SHe also had a complaint of abdominal discomfort when she took oral iron supplements. She was admitted for further workup of both. She was transfused 2 units pRBC during her stay, with improvement in H/H. FOBT was negative. Her iron studies demonstrated classic iron def. anemia., lyme serology was negative. Autoimmune workup done by PCP just prior to admission was also negative. It is possible she may have fibromyalgia, she should be referred to Rheumatology on d/c and as I am PCP, I will do this for her. She can come to the clinic March 24 2019 at 1:30 pm for followup, have messaged patient care secretary at [facility] office to schedule this. She is being d/c to c/w iron supplementation and instructed to take with a bowel regime like miralax to help lessen GI discomfort. On day of d/c she felt well and was anxious to go home. She was started on prednisone inpatient to help with arthralgia with great improvement in symptoms, she is d.c on prednisone taper. Syphilis, Hep B and C, HIV, gonorrhea neg. DISCHARGE MEDICATIONS: Please see below. ALLERGIES: Please see below. PHYSICAL EXAMINATION ON DISCHARGE: VITAL SIGNS: Please see below. GENERAL:Pleasant, 38 yo female, NAD, speaking in full sentences, happy to be going home HEENT: EOMI, moist mucus membranes, no JVD CARDIOVASCULAR EXAMINATION: normal s1 and s2., no murmurs, rubs or gallops RESPIRATORY EXAMINATION: cta b/l, no wheezing, rales or rhonchi appreciated ABDOMINAL EXAMINATION: nabsx4, no hepatosplenomegaly, no masses appreciated, nontender, no distension, no rebound ridgity or guarding EXTREMITIES: no swelling, cyanosis or edema NEUROLOGICAL EXAMINATION: no focal deficits appreciated LABORATORY DATA: Please see below. IMAGIN03.17.[address] ab/pel 03.17.[address]: 1[address] evidence of acute intra-abdominal or pelvic pathology. 2. Additional findings, as above. Impression: 1. No acute cardiopulmonary process. PROGNOSIS: Favorable ACTIVITY: As tolerated DIET: As tolerated DISCHARGE PLAN: Follow up with PCP within 5-7 days of dc, H/H needs to be mon itored, c/w iron supplements and bowel regime at home DISPOSITION: 01 Home, Self-Care. DISCHARGE INSTRUCTIONS: 1. Follow up with PCP within 5-7 days of dc, H/H needs to be monitored, c/w iron supplements and bowel regime at home. Prednisone taper on d/c. - Remain compliant with treatment plan and medications - Return to the ER if you experience any problems. ITEMS TO FOLLOWUP ON ON OUTPATIENT: 1. As above DISCHARGE CONDITION: Stable and improved TIME SPENT ON DISCHARGE: 35 minutes. Vital Signs/I&Os Vital Signs Date Time Temp Pulse Resp B/P (MAP) Pulse Ox O2 Delivery O2 Flow Rate FiO2 03/18/19 06:00 97.1 57 18 109/59 (76) 99 03/17/19 03:38 Room Air I&O- Last 24 Hours up to 6 AM 03/18/19 06:00 Intake Total 2720 ml Output Total 0 ml Balance 2720 ml Laboratory Data Labs 24H Laboratory Tests 2 03/18/19 07:12: Immature Granulocyte % (Auto) 0.3, White Blood Count 8.0, Red Blood Count 5.03, Hemoglobin 10.0L, Hematocrit 35.1L, Mean Corpuscular Volume 69.8L, Mean Corpuscular Hemoglobin 19.9L, Mean Corpuscular Hemoglobin Concent 28.5L, Red Cell Distribution Width 23.4H, Platelet Count 384, Neutrophils (%) (Auto) 59.7, Lymphocytes (%) (Auto) 31.8, Monocytes (%) (Auto) 7.5H, Eosinophils (%) (Auto) 0.3, Basophils (%) (Auto) 0.4, Neutrophils # (Auto) 4.8, Lymphocytes # (Auto) 2.5, Monocytes # (Auto) 0.6, Eosinophils # (Auto) 0.0, Basophils # (Auto) 0.0, Nucleated Red Blood Cells % (auto) 0.0, Anion Gap 6L, Glomerular Filtration Rate > 60.0, Blood Urea Nitrogen 13, Creatinine 0.69, Sodium Level 141, Potassium Level 4.4, Chloride Level 110H, Carbon Dioxide Level 25, Calcium Level 8.9, Magnesium Level 2.0, C-Reactive Protein, Quantitative 0.30 CBC/BMP Laboratory Tests 03/18/19 07:12 Red Blood Count 5.03, Mean Corpuscular Volume 69.8 L, Mean Corpuscular Hemoglobin 19.9 L, Mean Corpuscular Hemoglobin Concent 28.5 L, Red Cell Distribution Width 23.4 H, Neutrophils (%) (Auto) 59.7, Lymphocytes (%) (Auto) 31.8, Monocytes (%) (Auto) 7.5 H, Eosinophils (%) (Auto) 0.3, Basophils (%) (Auto) 0.4, Neutrophils # (Auto) 4.8, Lymphocytes # (Auto) 2.5, Monocytes # (Auto) 0.6, Eosinophils # (Auto) 0.0, Basophils # (Auto) 0.0, Calcium Level 8.9 Microbiology Microbiology 03/17/19 Stool Occult Blood (JERARDO) - Final, Complete Discharge Medications Scheduled Ferrous Sulfate (Ferrous Sulfate) 325 Mg Tablet, 325 MG PO QHS, (Reported) Prednisone (Prednisone) 10 Mg Tablet, 10 MG PO TAPER Take 4 tabs daily x 3 days, then 3 tabs daily x 3 days, then 2 tabs daily x 3 days, then 1 tab daily x 3 days and stop Venlafaxine HCl (Venlafaxine HCl ER) 75 Mg Cap.er.24h, 150 MG PO QHS, (Reported) Scheduled PRN Acetaminophen (Tylenol Extra Strength) 500 Mg Tablet, 1,000 MG PO Q6H PRN for PAIN, (Reported) TOOK 3 TABS FOR LAST DOSE Allergies Coded Allergies: No Known Allergies (Verified , 04/16/03) GME ATTESTATION GME ATTESTATION My faculty preceptor for this patient encounter was physically present during the encounter and was fully available. All aspects of the patient interview, examination, medical decision making process, and medical care plan development were reviewed and approved by the faculty preceptor. The faculty preceptor is aware and concurs with the plan as stated in the body of this note and will attest to such by his/her cosignature. ATTENDING NOTE I, Radha Shah, have both independently examined this patient as well as reviewed the documentation. I have discussed in detail with the resident the findings and plan of treatment as documented by the resident. I agree with their findings and treatment plan. I will continue to follow the patient and offer further guidance to the patients care as necessary during this hospital stay. Time spent on discharge 35 minutes RIRI STEWART DO Mar 18, 2019 16:00 RADHA SHAH MD Mar 18, 2019 18:36
[2019-03-21 14:12] LABS: HEMOGLOBIN A 98.4 % (96.4-98.8); HEMOGLOBIN A2 1.6 % (1.8-3.2); HGB SOLUBILITY Negative (Negative)
== END 2019-03-18 10:00 | disposition home or self-care (01) | DRG 663 ==
LOC: M ED 20:21 → M ED INP 03-17 02:42 → M MS5PR 03-17 03:40
PROVIDERS: ADMIT Student in an Organized Health Care Education/Training Program; ATTEND Internal Medicine
PROC: 30233N1 Transfusion of Nonautologous Red Blood Cells into Peripheral Vein, Percutaneous Approach (ICD-10-PCS; principal; 2019-03-17)
DX: D50.9 Iron deficiency anemia, unspecified (principal); M15.9 Polyosteoarthritis, unspecified; Z79.899 Other long term (current) drug therapy

== ENCOUNTER → 2019-03-24 | Outpatient (REF) | payer OTHER ==
[~2019-03-24] MED LIST changes: +ACET-897 PO; +FERR1TAB8 PO; +PRED10TA2 PO; +VENL75CA2 PO
[2019-03-24 16:35] LABS: BASO # 0.1 10^3/uL (0.0-0.2); BASO % 0.7 % (0.0-1.0); EOS # 0.1 10^3/uL (0.0-0.50); EOS % 1.1 % (0.0-3.0); HEMATOCRIT 36.1 % (36.0-47.0); HEMOGLOBIN 10.2 g/dl (12.0-15.5); LYMPH # 1.6 10^3/uL (1.5-4.5); LYMPH % 21.7 % (24.0-44.0); MEAN CORPUSCULAR HGB CONC 28.3 g/dl (32.0-36.5); MEAN CORPUSCULAR VOLUME 74.4 fl (80.0-96.0); MONO # 0.4 10^3/uL (0.0-0.8); MONO % 5.3 % (0.0-5.0); NEUTROPHILS % 70.6 % (36.0-66.0); PLATELET COUNT, AUTOMATED 386 10^3/uL (150-450); RED BLOOD COUNT 4.85 10^6/uL (4.00-5.40); WHITE BLOOD COUNT 7.1 10^3/uL (4.0-10.0)
== END ==
LOC: M SFHCPLAZ 14:20
DX: D64.9 Anemia, unspecified (principal)

== ENCOUNTER 2019-09-11 17:00 | Emergency (ER) | payer OTHER ==
[~2019-09-11] VITALS: Ht 167.6 cm; Wt 88.6 kg
[~2019-09-11 17:00] MED LIST changes: +FLUO20CA20 PO; -FLUO20CA8 PO; +SENN-53 PO; -SENN1TAB40 PO
[2019-09-11 18:14] LABS: HEMATOCRIT 36.5 % (36.0-47.0); HEMOGLOBIN 11.2 g/dl (12.0-15.5); MEAN CORPUSCULAR HEMOGLOBIN 25.7 pg (27.0-33.0); MEAN CORPUSCULAR HGB CONC 30.7 g/dl (32.0-36.5); MEAN CORPUSCULAR VOLUME 83.9 fl (80.0-96.0); PLATELET COUNT, AUTOMATED 318 10^3/uL (150-450); RED BLOOD COUNT 4.35 10^6/uL (4.00-5.40)
[2019-09-11 18:21] LABS: BLOOD UREA NITROGEN 18 MG/DL (7-18); CALCIUM LEVEL 8.8 MG/DL (8.5-10.1); CARBON DIOXIDE LEVEL 29 MEQ/L (21-32); CHLORIDE LEVEL 104 MEQ/L (98-107); GLOMERULAR FILTRATION RATE > 60.0 (>60); GLUCOSE, FASTING 84 MG/DL (70-100); POTASSIUM SERUM 4.1 MEQ/L (3.5-5.1); SODIUM LEVEL 139 MEQ/L (136-145)
[2019-09-11] MEDS ORDERED: VITA250T4 PO (18:47)
[2019-09-11 19:16] VITALS: BP 137/90
== END 2019-09-11 19:17 | disposition home or self-care (01) ==
LOC: M ED 17:00
DX: R53.83 Other fatigue (principal); E86.0 Dehydration; M25.50 Pain in unspecified joint; K64.8 Other hemorrhoids; Z79.899 Other long term (current) drug therapy

== ENCOUNTER → 2019-09-25 | Outpatient (CLI) | payer OTHER ==
[~2019-09-25] MED LIST changes: +VITA250T4 PO
[2019-09-25 17:17] LABS: HEMOGLOBIN 9.2 g/dl (12.0-15.5); MEAN CORPUSCULAR HEMOGLOBIN 25.9 pg (27.0-33.0); MEAN CORPUSCULAR HGB CONC 28.8 g/dl (32.0-36.5); MEAN CORPUSCULAR VOLUME 90.1 fl (80.0-96.0); PLATELET COUNT, AUTOMATED 390 10^3/uL (150-450); RED BLOOD COUNT 3.55 10^6/uL (4.00-5.40); WHITE BLOOD COUNT 7.3 10^3/uL (4.0-10.0)
[2019-09-25 17:44] LABS: ALBUMIN 3.9 GM/DL (3.2-5.2); ALT/SGPT 24 U/L (12-78); BILIRUBIN,TOTAL 0.3 MG/DL (0.2-1.0); BLOOD UREA NITROGEN 17 MG/DL (7-18); CALCIUM LEVEL 8.3 MG/DL (8.5-10.1); CARBON DIOXIDE LEVEL 26 MEQ/L (21-32); CHLORIDE LEVEL 105 MEQ/L (98-107); CREATININE FOR GFR 0.96 MG/DL (0.55-1.30); GLOMERULAR FILTRATION RATE > 60.0 (>60); GLUCOSE, FASTING 156 MG/DL (70-100); POTASSIUM SERUM 4.1 MEQ/L (3.5-5.1); SODIUM LEVEL 139 MEQ/L (136-145); THYROID STIMULATING HORMONE 0.276 uIU/ML (0.358-3.740); TOTAL PROTEIN 6.6 GM/DL (6.4-8.2)
== END ==
LOC: M LAB 16:37
PROVIDERS: ATTEND Student in an Organized Health Care Education/Training Program
DX: R42 Dizziness and giddiness (principal)

== ENCOUNTER → 2019-10-05 | Outpatient (CLI) | payer OTHER ==
[2019-10-05 19:56] LABS: FREE T3 2.2 PG/ML (2.2-4.0); FREE T4 0.85 NG/DL (0.76-1.46)
[2019-10-06 10:36] LABS: THYROID PEROXIDASE ANTIBODY < 28.0 U/ML (<60.0)
== END ==
LOC: M PLALAB 13:43
PROVIDERS: ATTEND Student in an Organized Health Care Education/Training Program
DX: R79.89 Other specified abnormal findings of blood chemistry (principal)

== ENCOUNTER → 2019-11-08 | Outpatient (REF) | payer OTHER, SELFPAY ==
[~2019-11-08] MED LIST changes: -MECL-68 PO; +MECL1TAB31 PO
[2019-11-08 18:33] LABS: BASO % 0.7 % (0.0-1.0); EOS # 0.1 10^3/uL (0.0-0.5); EOS % 1.6 % (0.0-3.0); HEMATOCRIT 31.7 % (36.0-47.0); HEMOGLOBIN 9.2 g/dl (12.0-15.5); LYMPH # 1.9 10^3/uL (1.5-5.0); LYMPH % 33.5 % (24.0-44.0); MEAN CORPUSCULAR HEMOGLOBIN 26.1 pg (27.0-33.0); MEAN CORPUSCULAR VOLUME 89.8 fl (80.0-96.0); MONO # 0.3 10^3/uL (0.0-0.8); MONO % 5.2 % (0.0-5.0); NEUTROPHILS # 3.4 10^3/uL (1.5-8.5); NEUTROPHILS % 58.8 % (36.0-66.0); PLATELET COUNT, AUTOMATED 369 10^3/uL (150-450); RED BLOOD COUNT 3.53 10^6/uL (4.00-5.40); WHITE BLOOD COUNT 5.7 10^3/uL (4.0-10.0)
[2019-11-08 19:05] LABS: ALBUMIN 3.8 GM/DL (3.2-5.2); ALT/SGPT 36 U/L (12-78); BILIRUBIN,TOTAL 0.2 MG/DL (0.2-1.0); BLOOD UREA NITROGEN 13 MG/DL (7-18); C REACTIVE PROTEIN QUANTITATIV < 0.30 MG/DL (0.00-0.30); CALCIUM LEVEL 8.5 MG/DL (8.5-10.1); CARBON DIOXIDE LEVEL 26 MEQ/L (21-32); CHLORIDE LEVEL 108 MEQ/L (98-107); CREATININE FOR GFR 0.81 MG/DL (0.55-1.30); FERRITIN 10 NG/ML (8-252); FREE T4 0.88 NG/DL (0.76-1.46); GLOMERULAR FILTRATION RATE > 60.0 (>60); GLUCOSE, FASTING 67 MG/DL (70-100); IRON (FE) 11 UG/DL (50-170); PERCENT SATURATION 2.5 % (13.2-45.0); SODIUM LEVEL 141 MEQ/L (136-145); THYROID STIMULATING HORMONE 0.427 uIU/ML (0.358-3.740); TOTAL IRON BINDING CAPACITY 440 UG/DL (250-450); TOTAL PROTEIN 6.6 GM/DL (6.4-8.2)
[2019-11-10 10:36] LABS: HEPATITIS B SURFACE ANTIGEN NEGATIVE (NEGATIVE)
[2019-11-10 11:04] LABS: HEPATITIS C VIRUS ABY INDEX < 0.0 INDEX (<0.8)
[2019-11-11 00:07] LABS: CYCLIC CITRULLINATED PEPTIDE 8 units (0-19); HEPATITIS B CORE ANTIBODY IGG Negative (Negative)
== END ==
LOC: M SFHCRHEU 15:54
PROVIDERS: ATTEND Internal Medicine
DX: L40.50 Arthropathic psoriasis, unspecified (principal); D50.8 Other iron deficiency anemias; R63.5 Abnormal weight gain

== ENCOUNTER 2020-04-05 11:03 | Inpatient (IN) | payer OTHER, SELFPAY ==
[2020-04-05] VITALS (15 sets, daily range): BP systolic 130–181; BP diastolic 60–90
[~2020-04-05] VITALS: Ht 167.6 cm; Wt 90.0 kg
[2020-04-05 11:48] LABS: BASO % 0.5 % (0.0-1.0); EOS # 0.1 10^3/uL (0.0-0.5); EOS % 1.5 % (0.0-3.0); LYMPH # 1.1 10^3/uL (1.5-5.0); LYMPH % 27.1 % (24.0-44.0); MEAN CORPUSCULAR HEMOGLOBIN 25.8 pg (27.0-33.0); MEAN CORPUSCULAR HGB CONC 29.8 g/dl (32.0-36.5); MEAN CORPUSCULAR VOLUME 86.6 fl (80.0-96.0); MONO # 0.3 10^3/uL (0.0-0.8); MONO % 6.5 % (0.0-5.0); NEUTROPHILS # 2.6 10^3/uL (1.5-8.5); NEUTROPHILS % 64.1 % (36.0-66.0); PLATELET COUNT, AUTOMATED 264 10^3/uL (150-450); RED BLOOD COUNT 2.09 10^6/uL (4.00-5.40)
[2020-04-05 11:55] LABS: HEMATOCRIT 18.1 % (36.0-47.0); HEMOGLOBIN 5.4 g/dl (12.0-15.5)
[2020-04-05] MEDS ORDERED: VENL150C43 PO (12:34)
[2020-04-05 12:51] LABS: PERCENT SATURATION 1.6 % (13.2-45.0)
[2020-04-05 13:21] LABS: FOLATE 10.8 NG/ML (>5.4)
[2020-04-05] MEDS ORDERED: MOM 30ML SUSPENSION UDC PO PRN (13:30)
[2020-04-05] MEDS ORDERED: MAALOX 30 ML SUSP *UDC PO PRN (13:30)
[2020-04-05] MEDS ORDERED: SLF 3 ML SYR IV PRN (16:00)
[2020-04-05] MEDS: DOCUSATE SODIUM 100MG CAPSULE PO SCH (20:12)
[2020-04-05] MEDS: SLF 3 ML SYR IV SCH (20:13)
[2020-04-05] MEDS: VENLAFAXINE **XR** 75MG CAPSULE PO SCH (20:13)
[2020-04-05] MEDS: ACETAMINOPHEN TAB 650MG DOSE (2X325MG) PO PRN (20:13)
--- NOTE | 2020-04-05 20:38 | ECGEPIP ---
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
--- NOTE | 2020-04-05 23:34 | HPEPDOC ---
[facility] Medical History & Physical Date of Admission Apr 05, 2020 Date of Service: Apr 05, 2020 Other Provider PCP: [facility] Attending Physician: THEODORE TALAMANTES DO History and Physical CHIEF COMPLAINT: Profound fatigue, blood loss anemia HISTORY OF PRESENT ILLNESS: Patient is a 39-year-old female who presents emergency department with profound fatigue. She reports that she has known bleeding internal hemorrhoids, she states that yesterday when she was on toilet and could actually see the blood spraying into the toilet. She has been dealing with these for quite some time, she did have a colonoscopy performed in [address] Llanos with the only positive finding on the exam being large nonbleeding prolapsed internal hemorrhoids. The patient has previously been offered surgical correction of these, but has declined. After what happened yesterday, and the way she is feeling today, she would like to discuss her case again with surgery for possible banding of the internal hemorrhoids. She reports that she has not had any bleeding yet again today, but came in because of profound fatigue and weakness. CODE STATUS: Full code PAST MEDICAL HISTORY: Known internal hemorrhoids with intermittent bleeding Iron deficiency anemia, likely secondary to blood loss Depression Anxiety PAST SURGICAL HISTORY: Colonoscopy and EGD November [address] [facility] SOCIAL HISTORY: Former smoker, currently Vapes. Has a history of substance abuse including cocaine, crack, and Percocet, apparently she has been clean for years. FAMILY HISTORY: No family history of bleeding disorders REVIEW OF SYSTEMS: Constitutional: Patient denies fevers, chills, night sweats, recent weight gain/loss. HEENT: Patient denies blurred or double vision, transient visual disturbances, postnasal drip, epistaxis, sore throat, difficulty chewing or swallowing food. Cardiovascular: Patient denies chest discomfort/pain, palpitations, exertional dyspnea, orthopnea, edema of the extremities, claudication. Respiratory: Patient admits to some dyspnea, denies wheezing, cough, hemoptysis, sputum production. Gastrointestinal: Patient denies nausea, vomiting, diarrhea, abdominal pain, melena, hematochezia, hematemesis, jaundice. She does suffer from intermittent constipation. PHYSICAL EXAMINATION: General: Awake, alert, she does appear to be tired, but not in any acute distress. HEENT: Head normocephalic atraumatic, conjunctiva are pale, sclera are nonicteric, buccal mucosa is pink and moist with no lesions in the oropharynx. Hearing is grossly intact to conversation. Respiratory: Clear to auscultation bilaterally with no wheezes, rales, or rhonchi. Cardiovascular: Regular rate and rhythm, with no rubs, gallops, or murmur. Abdomen: Soft, nontender, nondistended, no hepatosplenomegaly appreciated. Bowel sounds present. Rectal: Fecal occult in the ED was negative. Prolapsed hemorrhoids present. No visible blood in this time. Extremities: 2+ pulses in the radial and dorsalis pedis bilaterally. No evidence of clubbing or cyanosis. ELECTROCARDIOGRAM: Sinus, no acute abnormalities. ASSESSMENT: Severe symptomatic anemia secondary to bleeding hemorrhoids -Transfuse 4 units of blood -Colace twice a day -Surgical consult has been requested Depression -Continue home dose of Effexor DVT prophylaxis -Teds and sequentials given her bleeding risk DISPO: Admit to PCU for tonight, more as a precautionary measure in case she starts bleeding again, as it sounds like her bleeding can be quite rapid. Vital Signs Vital Signs Date Time Temp Pulse Resp B/P (MAP) Pulse Ox O2 Delivery O2 Flow Rate FiO2 04/05/20 22:30 97.5 68 14 142/80 100 Room Air Laboratory Data Labs 24H Laboratory Tests 2 04/05/20 11:35: Immature Granulocyte % (Auto) 0.3, Neutrophils (%) (Auto) 64.1, Lymphocytes (%) (Auto) 27.1, Monocytes (%) (Auto) 6.5H, Eosinophils (%) (Auto) 1.5, Basophils (%) (Auto) 0.5, Neutrophils # (Auto) 2.6, Lymphocytes # (Auto) 1.1L, Monocytes # (Auto) 0.3, Eosinophils # (Auto) 0.1, Basophils # (Auto) 0.0, Reticulocyte # (auto) 101.7H, Nucleated Red Blood Cells % (auto) 0.0, Percent Reticulocyte Count 4.8H, Reticulocyte Hemoglobin Equivalent 22.2L 04/05/20 11:41: POC Glucose (Misc Panel) 109H, POC Sodium (Misc Panel) 138, POC Potassium (Misc Panel) 3.6, POC Chloride (Misc Panel) 105, POC Total CO2 (Misc Panel) 21.0L, POC Blood Urea Nitrogen (Misc Panel 10, POC Ionized Calcium (Misc Panel) 4.4L, POC Creatinine (Misc Panel) 1.0, POC Hematocrit (Misc Panel) 17.0L 04/05/20 11:55: POC Beta HCG, Quantitative < 5.0 04/05/20 12:15: Iron Level 6L, Total Iron Binding Capacity 373, Transferrin % Saturation 1.6L, Ferritin 9, Vitamin B12 Level 455, Folate 10.8 CBC/BMP Laboratory Tests 04/05/20 11:35 Home Medications Scheduled Ascorbic Acid (Vitamin C) 250 Mg Tablet, 250 MG PO DAILY Ferrous Sulfate (Ferrous Sulfate) 325 Mg Tablet, 325 MG PO QHS Venlafaxine HCl (Venlafaxine HCl ER) 150 Mg Cap.er.24h, 150 MG PO QHS Allergies Coded Allergies: No Known Allergies (Verified , 04/16/03) A-FIB/CHADSVASC A-FIB History Current/History of A-Fib/PAF?: No Current PO Anticoag Therapy: No THEODORE TALAMANTES DO Apr 05, 2020 23:34
[2020-04-06] VITALS (8 sets, daily range): BP systolic 132–175; BP diastolic 67–90
[2020-04-06 02:12] LABS: HEMOGLOBIN 9.1 g/dl (12.0-15.5)
[2020-04-06 05:09] LABS: HEMATOCRIT 27.9 % (36.0-47.0); HEMOGLOBIN 8.9 g/dl (12.0-15.5)
[2020-04-06 05:33] LABS: ALBUMIN 2.8 GM/DL (3.2-5.2); ALT/SGPT 13 U/L (12-78); BLOOD UREA NITROGEN 8 MG/DL (7-18); CALCIUM LEVEL 7.6 MG/DL (8.5-10.1); CARBON DIOXIDE LEVEL 25 MEQ/L (21-32); CHLORIDE LEVEL 112 MEQ/L (98-107); CREATININE FOR GFR 0.88 MG/DL (0.55-1.30); GLOMERULAR FILTRATION RATE > 60.0 (>60); GLUCOSE, FASTING 87 MG/DL (70-100); SODIUM LEVEL 143 MEQ/L (136-145)
[2020-04-06] MEDS: SLF 3 ML SYR IV SCH ×3 (06:06→20:06)
[2020-04-06] MEDS: DOCUSATE SODIUM 100MG CAPSULE PO SCH ×2 (08:35→20:05)
[2020-04-06] MEDS: ACETAMINOPHEN TAB 650MG DOSE (2X325MG) PO PRN ×2 (08:37→20:06)
--- NOTE | 2020-04-06 11:03 | IPNPDOC ---
Text Note Date of Service The patient was seen on 04/06/20. NOTE SUBJECTIVE: had more episodes overnight x 2 per patient's report General: NAD HEENT: NCAT, PERRLA, EOMI, conjunctival pallor, MMM Respiratory: CTAB, no wheezes, rales, or rhonchi. Cardiovascular: RRR, with no rubs, gallops, or murmur. Abdomen: Normoactive sounds, soft, nontender, nondistended, no hepatosplenomegaly appreciated. Extremities: 2+ pulses in the radial and dorsalis pedis bilaterally. ELECTROCARDIOGRAM: Sinus, no acute abnormalities. labs: reviewed Hgb now 8.9 ASSESSMENT: Severe symptomatic anemia secondary to bleeding hemorrhoids -s/p 4 units of blood -Continue colace twice a day -Surgical consult has been requested, Dr. Kenyon to see her this AM for potential banding, going to OR shortly -NPO for OR, will start regular diet after Fe deficiency anemia: -Fe 6, ferritin 9 with normal B12 and folate -s/p 4 units of blood -will give 1 dose of IV iron after OR and start per daily PO iron with plan to repeat labs in 6 weeks as an outpatient Depression -Continue home dose of Effexor DVT prophylaxis -Teds and sequentials given her bleeding risk DISPO: -PCU VS,Beatriz, I+O VS, Beatriz, I+O Laboratory Tests 04/05/20 11:35 04/06/20 01:53 04/06/20 04:47 Vital Signs Date Time Temp Pulse Resp B/P (MAP) Pulse Ox O2 Delivery O2 Flow Rate FiO2 04/06/20 08:00 97.7 63 16 136/67 (90) 99 Room Air I&O- Last 24 Hours up to 6 AM 04/06/20 05:59 Intake Total 1645 ml Balance 1645 ml REGAN DE LOS SANTOS MD Apr 06, 2020 08:53
[2020-04-06 12:17] LABS: HEMATOCRIT 32.4 % (36.0-47.0); HEMOGLOBIN 9.9 g/dl (12.0-15.5)
[2020-04-06] MEDS ORDERED: IRON SUCROSE 100MG 5ML VIAL (J1756 PER 1MG) IV ONE (16:15)
[2020-04-06] MEDS: FERROUS SULFATE 325MG TAB PO SCH (17:37)
[2020-04-06] MEDS ORDERED: IRON SUCROSE 100 MG in NS 100 ML OVER 1 HR IV ONE (18:00)
[2020-04-06 18:30] LABS: HEMATOCRIT 30.2 % (36.0-47.0); HEMOGLOBIN 9.5 g/dl (12.0-15.5)
--- NOTE | 2020-04-06 18:43 | CR ---
DATE OF CONSULTATION: 04/06/2020 The patient was admitted yesterday evening with lower gastrointestinal (GI) bleeding and had upper and lower endoscopy by Dr. Llanos in the past and only found internal hemorrhoids. No other significant problem was seen. I had seen her a few years ago and had discussed treatment for her hemorrhoids in the office. Recommended some preparation-H, etc., given that she did not want intervention at that time, and did not have any followup after that. She has had some continued bleeding over the years and had some recent severe bleeding over the last 24 hours. Since she has been admitted reportedly had no significant bowel movements on the day of admission; however, during the night last night she had indeed some bright red blood per rectum. No significant bowel movements, per se. She was admitted for her profound anemia, fatigue, and weakness. PAST MEDICAL HISTORY: 1. Consistent with history of internal hemorrhoids with intermittent bleeding. 2. History of iron deficiency anemia. 3. History of depression and anxiety. PHYSICAL EXAMINATION: Reveals a 39-year-old female who looks stated age. HEENT is unremarkable. NECK: Supple without adenopathy. LUNGS: Clear. HEART: Regular. ABDOMEN: Soft, nontender. Digital exam will be deferred until the time of anoscopy/evaluation. IMPRESSION AND PLAN: The patient has bleeding, and given her significant hematocrit drop and ongoing bleeding, I do feel that an anoscopic exam is reasonable and possible hemorrhoid banding. If we do not see a source for the bleeding or bleeding hemorrhoids at that time, then she will need a bowel prep with a colonoscopy. The patient understands the risks as well as benefits associated with the hemorrhoid banding and would like to proceed with this as discussed.
[2020-04-06] MEDS: VENLAFAXINE **XR** 75MG CAPSULE PO SCH (20:05)
[2020-04-07] VITALS: BP 145/72
[2020-04-07 04:00] VITALS: BP 120/76
[2020-04-07] MEDS: ACETAMINOPHEN TAB 650MG DOSE (2X325MG) PO PRN (05:11)
[2020-04-07 05:41] LABS: HEMATOCRIT 29.2 % (36.0-47.0); HEMOGLOBIN 9.2 g/dl (12.0-15.5); MEAN CORPUSCULAR HGB CONC 31.5 g/dl (32.0-36.5); PLATELET COUNT, AUTOMATED 266 10^3/uL (150-450); RED BLOOD COUNT 3.28 10^6/uL (4.00-5.40)
[2020-04-07] MEDS: SLF 3 ML SYR IV SCH (05:55)
[2020-04-07 06:10] LABS: BLOOD UREA NITROGEN 10 MG/DL (7-18); CARBON DIOXIDE LEVEL 24 MEQ/L (21-32); CHLORIDE LEVEL 111 MEQ/L (98-107); CREATININE FOR GFR 0.88 MG/DL (0.55-1.30); GLOMERULAR FILTRATION RATE > 60.0 (>60); GLUCOSE, FASTING 84 MG/DL (70-100); POTASSIUM SERUM 4.1 MEQ/L (3.5-5.1); SODIUM LEVEL 144 MEQ/L (136-145)
--- NOTE | 2020-04-07 07:10 | RO ---
DATE OF PROCEDURE: 04/06/2020 PREOPERATIVE DIAGNOSIS: Rectal bleeding. POSTOPERATIVE DIAGNOSIS: Rectal bleeding secondary to internal hemorrhoids. PROCEDURE: Anoscopy with rubber band ligation of internal hemorrhoids. SURGEON: Marco Kenyon MD ESCAPEMENT MAKER: ANESTHESIA: None. ESTIMATED BLOOD LOSS: Minimal. DESCRIPTION OF PROCEDURE: Brief procedure summary: The patient was brought to the operating room, was placed in a left lateral decubitus position. Digital rectal exam was performed and also was noted that the patient did have some external hemorrhoids. These were mildly edematous but not thrombosed. No evidence of a fissure was appreciated. Anoscope was inserted and indeed revealed a lot of prolapsing tissue in the distal rectum, but in addition, there was grade 3 hemorrhoids and actually one area that had been bleeding that was in the right posterior. This was treated with a hemorrhoid band, and the left lateral area did not reveal any active bleeding, although the patient had some grade 3 hemorrhoids in this area. After a couple more insertions of the anoscope, it was obvious that there was some friability right adjacent to this area that I had ligated and thus two more applications of the hemorrhoid booster pump oiler were applied in this generalized area. The patient tolerated this quite well and was brought to the recovery room awake, alert, hemodynamically stable. Plan would be to progress her diet as tolerated and discharge her home with follow up in the office. I would recommend that she follow up in 4-6 weeks in my office and then at that point, we may need to treat her with additional hemorrhoid banding. She has a significant amount of prolapsing tissue and some hemorrhoids that are adjacent to the anal verge that may also be quite problematic for her. But at this point, things seem to be under control. No active bleeding is appreciated, and as she gets stabilized from a medical standpoint, she tolerates a diet, she can be discharged home with followup.
--- NOTE | 2020-04-07 07:40 | DS.PDOC ---
Discharge Summary General Date of Admission Apr 05, 2020 at 13:29 Date of Discharge 04/07/2020 Attending Physician: REGAN DE LOS SANTOS MD Specialist/Consultants Involve: Marco Kenyon Jr Discharge Summary PROCEDURES PERFORMED DURING STAY: Anoscopy with rubber band ligation of internal hemorrhoids. ADMITTING DIAGNOSES: 1. Symptomatic anemia 2/2 LGIB DISCHARGE DIAGNOSES: 1. Symptomatic anemia 2. LGIB 2/2 internal hemorrhoids 3. Iron deficiency anemia likely secondary to blood loss 4. Depression 5. Anxiety COMPLICATIONS/CHIEF COMPLAINT: Gi Bleed,Symptomatic Anemia. HISTORY OF PRESENT ILLNESS: 39-year-old W who presented to the emergency department with profound fatigue. She reported that she has known bleeding internal hemorrhoids and that the day prior to presentation, she was on toilet and could actually see the blood spraying into the toilet. She has been dealing with these for quite some time, with a colonoscopy performed in [address] Llanos with the only positive finding on the exam being large nonbleeding prolapsed internal hemorrhoids. The patient was previously offered surgical intervention of these, but declined at that time. After what happened this time, and the new profound fatigue, she was interested in possible banding of the internal hemorrhoids. HOSPITAL COURSE: She was HDS and afebrile. Hgb was ~5 and she received 4 units of pRBCs and admitted to medicine and surgery was consulted. On day 2, surgery performed anoscopy with rubber band ligation of internal hemorrhoids after which he reported the findings of mildly edematous but not thrombosed external hemorrhoids without evidence of a fissure, while anoscopy revealed a lot of prolapsing tissue in the distal rectum, grade 3 hemorrhoids and one area that had been bleeding that was in the right posterior that was banded. Surgery then recommended restoring a regular diet, and follow up in 4-6 weeks with surgery outpatient as she may require treatment with additional hemorrhoid banding. She is now being discharged home with daily miralax and senna/colace BID to avoid straining. With regard to her anemia, Fe studies revealed profound iron d eficiency with a ferritin <10. In addition to the 4u of pRBCs, she received 1 IV dose of iron sucrose and will now be discharged on iron 325mg daily with plan for PCP follow up with follow up iron studies in 6 weeks. DISCHARGE MEDICATIONS: Please see below. ALLERGIES: Please see below. PHYSICAL EXAMINATION ON DISCHARGE: VITAL SIGNS: Please see below. HEENT: NCAT, PERRLA, EOMI, conjunctival pallor, MMM Respiratory: CTAB, no wheezes, rales, or rhonchi. Cardiovascular: RRR, with no rubs, gallops, or murmur. Abdomen: Normoactive sounds, soft, nontender, nondistended, no hepatosplenomegaly appreciated. Extremities: 2+ pulses in the radial and dorsalis pedis bilaterally. LABORATORY DATA: Please see below. IMAGING: none this admission PROGNOSIS: Good ACTIVITY: As tolerated DIET: Regular DISCHARGE PLAN: Home with PCP follow up, surgery follow up in 6 weeks, Fe supplementation daily, senna/colace twice daily and miralax daily. DISPOSITION: Home DISCHARGE INSTRUCTIONS: 1. Home with PCP follow up, surgery follow up in 6 weeks, Fe supplementation daily, senna/colace twice daily and miralax daily. ITEMS TO FOLLOWUP ON ON OUTPATIENT: 1. Hemorrhoids and LGIB bleeding 2.Iron deficiency anemia DISCHARGE CONDITION: Stable TIME SPENT ON DISCHARGE: 40 minutes. Vital Signs/I&Os Vital Signs Date Time Temp Pulse Resp B/P (MAP) Pulse Ox O2 Delivery O2 Flow Rate FiO2 04/07/20 04:00 97.2 56 15 120/76 (91) 100 Room Air I&O- Last 24 Hours up to 6 AM 04/07/20 06:00 Intake Total 1310 ml Output Total 0 ml Balance 1310 ml Laboratory Data Labs 24H Laboratory Tests 2 04/06/20 09:36: Coronavirus (COVID-19)(PCR) NEGATIVE 04/07/20 05:12: Nucleated Red Blood Cells % (auto) 0.0, Anion Gap 9, Glomerular Filtration Rate > 60.0, Calcium Level 8.0L CBC/BMP Laboratory Tests 04/06/20 12:09 04/06/20 18:15 04/07/20 05:12 Discharge Medications Scheduled Ascorbic Acid (Vitamin C) 250 Mg Tablet, 250 MG PO DAILY, (Reported) Ferrous Sulfate (Ferrous Sulfate) 325 Mg Tablet, 325 MG PO QHS, (Reported) Venlafaxine HCl (Venlafaxine HCl ER) 150 Mg Cap.er.24h, 150 MG PO QHS, (Reported) Allergies Coded Allergies: No Known Allergies (Verified , 04/16/03) REGAN DE LOS SANTOS MD Apr 07, 2020 07:39
[2020-04-07] MEDS ORDERED: SENO8.6T5 PO (07:41)
[2020-04-07] MEDS ORDERED: MIRA3350 PO (07:41)
[2020-04-07] MEDS ORDERED: FERR1TAB8 PO (07:41)
[2020-04-07 08:00] VITALS: BP 128/86
[2020-04-07] MEDS: FERROUS SULFATE 325MG TAB PO SCH (09:10)
[2020-04-07] MEDS: DOCUSATE SODIUM 100MG CAPSULE PO SCH (09:10)
== END 2020-04-07 09:30 | disposition home or self-care (01) | DRG 226 ==
LOC: M ED 11:03 → M ED INP 13:29 → M PCU 15:50
PROVIDERS: ADMIT Neuromusculoskeletal Medicine & OMM; ATTEND Internal Medicine
PROC: 30233N1 Transfusion of Nonautologous Red Blood Cells into Peripheral Vein, Percutaneous Approach (ICD-10-PCS; principal; 2020-04-05)
PROC: 06LY4CC Occlusion of Hemorrhoidal Plexus with Extraluminal Device, Percutaneous Endoscopic Approach (ICD-10-PCS; 2020-04-06)
DX: K64.2 Third degree hemorrhoids (principal); D62 Acute posthemorrhagic anemia; K64.4 Residual hemorrhoidal skin tags; F41.9 Anxiety disorder, unspecified; F32.9 Major depressive disorder, single episode, unspecified; F17.290 Nicotine dependence, other tobacco product, uncomplicated; Z79.899 Other long term (current) drug therapy

== ENCOUNTER 2020-07-22 16:52 | Inpatient (IN) | payer OTHER ==
[~2020-07-22] VITALS: Ht 167.6 cm; Wt 93.9 kg
[~2020-07-22 16:52] MED LIST changes: +MIRA3350 PO; +SENO8.6T5 PO; +VENL150C43 PO
[2020-07-22 19:01] LABS: BASO % 0.4 % (0.0-1.0); EOS # 0.1 10^3/uL (0.0-0.5); EOS % 1.4 % (0.0-3.0); HEMATOCRIT 23.8 % (36.0-47.0); HEMOGLOBIN 7.3 g/dl (12.0-15.5); LYMPH # 2.7 10^3/uL (1.5-5.0); LYMPH % 48.1 % (24.0-44.0); MEAN CORPUSCULAR HEMOGLOBIN 28.2 pg (27.0-33.0); MEAN CORPUSCULAR HGB CONC 30.7 g/dl (32.0-36.5); MEAN CORPUSCULAR VOLUME 91.9 fl (80.0-96.0); MONO # 0.2 10^3/uL (0.0-0.8); MONO % 4.3 % (0.0-5.0); NEUTROPHILS # 2.6 10^3/uL (1.5-8.5); NEUTROPHILS % 45.4 % (36.0-66.0); PLATELET COUNT, AUTOMATED 269 10^3/uL (150-450); RED BLOOD COUNT 2.59 10^6/uL (4.00-5.40); WHITE BLOOD COUNT 5.6 10^3/uL (4.0-10.0)
--- NOTE | 2020-07-22 19:27 | REPVR ---
PROCEDURE INFORMATION: Exam: XR Chest, 2 Views Exam date and time: 07/22/2020 7:13 PM Age: 39 years old Clinical indication: Shortness of breath; Additional info: SOB TECHNIQUE: Imaging protocol: XR of the chest Views: 2 views. COMPARISON: CR Chest, 2 view PA, Lat 03/17/2019 12:48 AM FINDINGS: Lungs: Suggestion of increased opacity at the right lung base adjacent to the right hemidiaphragmatic contour. An evolving pneumonitis not excluded. Lungs otherwise clear. Pleural space: Unremarkable. No pleural effusion. No pneumothorax. Heart/Mediastinum: Unremarkable. No cardiomegaly. Bones/joints: Unremarkable. IMPRESSION: 1. Suggestion of increased opacity at the right lung base adjacent to the right hemidiaphragmatic contour. An evolving pneumonitis not excluded. 2. Lungs otherwise clear. Electronically signed by: Jw Schafer On 07/22/2020 19:27:15 PM
[2020-07-22 20:04] LABS: D-DIMER QUANT < 270 ng/ml (<500)
[2020-07-22] MEDS ORDERED: FERR325T18 PO (20:42)
[2020-07-22 20:50] LABS: INR 0.82; PROTHROMBIN TIME 11.5 SECONDS (12.5-14.3)
[2020-07-22] MEDS ORDERED: ENOXAPARIN 40MG/0.4ML SYRINGE (J1650 PER 10MG) SC SCH (21:00)
[2020-07-22] MEDS ORDERED: NICOTINE 21MG/24HR 1 EA TRANSDERMAL TD ONE (22:00)
[2020-07-22] MEDS ORDERED: VENLAFAXINE **XR** 75MG CAPSULE PO ONE (22:00)
--- NOTE | 2020-07-22 22:03 | HPEPDOC ---
[facility] Medical History & Physical Date of Admission Jul 22, 2020 Date of Service: Jul 22, 2020 History and Physical CHIEF COMPLAINT: lower GI bleed HISTORY OF PRESENT ILLNESS: 39-year-old female past medical history of internal hemorrhoids presents with symptomatic anemia. Complaining of shortness of breath and palpitations for the last 3 days. These episodes have happened on multiple occasions in the past. She was found to have internal hemorrhoids status post banding in March of this year by Dr. Kenyon. She tells me that with every bowel movement she has episodes of bright red blood per rectum. Tells me she is always constipated and takes milk of magnesia daily which helps a little. She has not seen gastroenterology in the past to workup her chronic constipation. PAST MEDICAL HISTORY: Psoriatic arthritis PAST SURGICAL HISTORY: Appendectomy 2016 SOCIAL HISTORY: Endorses occasional alcohol use socially with friends one to 2 times per week Endorses vaping obacco Denies illicit drug use FAMILY HISTORY: Denies family history of colorectal cancer ALLERGIES: Please see below. REVIEW OF SYSTEMS: Constitutional: Feeling weak Eyes: No eye pain or acute blurred vision HENT: No complaints of headache or sore throat Cadiovascular: No Chest pain number palpitations Pulm: Mild shortness of breath on exertion that has been worsening for the past few weeks Gastrointestinal: No N/V, no abdominal pain. Genitourinary: No dysuria or hematuria Musculoskeletal: No back pain or joint pain Skin: No rash or jaundice Neurological: Generalized weakness HOME MEDICATIONS: Please see below. PHYSICAL EXAMINATION: Constitutional: Awake and alert, in no apparent distress ENT: Sclera are clear. Mucosa is moist. Respiratory: Lungs CTA bilaterally. No respiratory distress. No use of accessory muscles. Cardiovascular: RRR S1 and S2 are normal, no murmur Gastrointestinal: Abdomen is soft, non distended, non tender, BS present. Musculoskeletal: No edema. No joint deformities. RUE 5/5, LUE 5/5, BLE 5/5 Neurologic: No focal neurological deficit. Mental Status: A&O x3, normal affect Skin: Warm, dry nonbleeding small external hemorrhoids. No internal hemorrhoids on palpation small amount of bright blood on digital exam. LABORATORY DATA: See below. IMAGING: CXR1. Suggestion of increased opacity at the right lung base adjacent to the right hemidiaphragmatic contour. An evolving pneumonitis not excluded. MICROBIOLOGY: Please see below. ASSESSMENT/PLAN 39-year-old female past medical history of internal hemorrhoids presents with symptomatic anemia secondary to lower GI bleed presumed to be from her internal hemorrhoids. Dr. Kenyon was consulted ED. Hemoglobin in the ED was 7.3 and 1 unit of blood was ordered. # Lower GI bleed: Trend HH Q6H, transfuse for Hgb < 7, consult Dr. Kenyon for possible endoscopy vs colonoscopy. Clear liquid diet for now. Protonix. Coags, consider GI consult. # Depression: Resume home venlafaxine # Smoker: Nicotine patch, counseled to quit smoking. #DVT prophylaxis: SCDs only A [facility] Hospitalist Vital Signs Vital Signs Date Time Temp Pulse Resp B/P (MAP) Pulse Ox O2 Delivery O2 Flow Rate FiO2 07/22/20 18:43 07/22/20 16:53 98.5 90 16 100 Room Air Laboratory Data Labs 24H Laboratory Tests 2 07/22/20 18:30: Immature Granulocyte % (Auto) 0.4, Neutrophils (%) (Auto) 45.4, Lymphocytes (%) (Auto) 48.1H, Monocytes (%) (Auto) 4.3, Eosinophils (%) (Auto) 1.4, Basophils (%) (Auto) 0.4, Neutrophils # (Auto) 2.6, Lymphocytes # (Auto) 2.7, Monocytes # (Auto) 0.2, Eosinophils # (Auto) 0.1, Basophils # (Auto) 0.0, Nucleated Red Blood Cells % (auto) 0.0, Prothrombin Time 11.5L, Prothromb Time International Ratio 0.82, D-Dimer, Quantitative < 270 07/22/20 18:40: POC Glucose (Misc Panel) 91, POC Sodium (Misc Panel) 139, POC Potassium (Misc Panel) 3.5, POC Chloride (Misc Panel) 102, POC Total CO2 (Misc Panel) 25.0, POC Blood Urea Nitrogen (Misc Panel 13, POC Ionized Calcium (Misc Panel) 4.6, POC Creatinine (Misc Panel) 0.9, POC Hematocrit (Misc Panel) 22.0L 07/22/20 18:42: POC Beta HCG, Quantitative < 5.0 CBC/BMP Laboratory Tests 07/22/20 18:30 Home Medications Scheduled Ascorbic Acid (Vitamin C) 250 Mg Tablet, 250 MG PO QHS Ferrous Sulfate (Ferrous Sulfate) 325 Mg Tablet, 325 MG PO QHS Venlafaxine HCl (Venlafaxine HCl ER) 150 Mg Cap.er.24h, 150 MG PO QHS Allergies Coded Allergies: No Known Allergies (Verified , 04/16/03) A-FIB/CHADSVASC A-FIB History Current/History of A-Fib/PAF?: No GERARDO CASON MD Jul 22, 2020 21:40
[2020-07-22] MEDS ORDERED: PANTOPRAZOLE 40MG TAB (PROTONIX) PO ONE (22:15)
[2020-07-22 22:52] VITALS: BP 127/84
[2020-07-22 23:07] VITALS: BP 116/54
[2020-07-23] VITALS (8 sets, daily range): BP systolic 124–145; BP diastolic 65–85
[2020-07-23] MEDS: DOCUSATE SODIUM 100 MG CAP PO SCH ×4 (00:29→20:17)
[2020-07-23] MEDS: FERROUS SULFATE 325MG TAB PO SCH ×2 (00:29→20:17)
[2020-07-23] MEDS: ACETAMINOPHEN TAB 650MG DOSE (2X325MG) PO PRN (00:29)
[2020-07-23] MEDS: NS 1,000 ML IV SCH ×2 (00:37→06:02)
[2020-07-23 03:41] LABS: HEMATOCRIT 26.7 % (36.0-47.0); HEMOGLOBIN 8.3 g/dl (12.0-15.5)
[2020-07-23 06:38] LABS: HEMATOCRIT 25.8 % (36.0-47.0); HEMOGLOBIN 8.3 g/dl (12.0-15.5); MEAN CORPUSCULAR HEMOGLOBIN 29.1 pg (27.0-33.0); MEAN CORPUSCULAR HGB CONC 32.2 g/dl (32.0-36.5); MEAN CORPUSCULAR VOLUME 90.5 fl (80.0-96.0); PLATELET COUNT, AUTOMATED 227 10^3/uL (150-450); RED BLOOD COUNT 2.85 10^6/uL (4.00-5.40); WHITE BLOOD COUNT 4.5 10^3/uL (4.0-10.0)
[2020-07-23 07:10] LABS: BLOOD UREA NITROGEN 14 MG/DL (7-18); CALCIUM LEVEL 8.2 MG/DL (8.5-10.1); CARBON DIOXIDE LEVEL 28 MEQ/L (21-32); CHLORIDE LEVEL 110 MEQ/L (98-107); CREATININE FOR GFR 0.94 MG/DL (0.55-1.30); GLOMERULAR FILTRATION RATE > 60.0 (>60); GLUCOSE, FASTING 94 MG/DL (70-100); POTASSIUM SERUM 4.6 MEQ/L (3.5-5.1); SODIUM LEVEL 142 MEQ/L (136-145)
--- NOTE | 2020-07-23 07:10 | IPNPDOC ---
Date Seen The patient was seen on 07/23/20. Progress Note SUBJECTIVE: She was seen and examined at bedside this morning. Denies repeat episodes of lower GI bleeding. Has not had a bowel movement since last night. No chest pain, shortness of breath, nausea, vomiting, diarrhea. She events overnight. Hgb improved after 2 units. OBJECTIVE PHYSICAL EXAMINATION: VITAL SIGNS: Please see below General: NAD, comfortable HEENT: PERRLA, EOMI, sclerae clear Neck: supple, normal ROM, no JVD Respiratory: lungs CTAB, no wheeze, no rales, no crackles CVS: RRR, normal S1, S2, no murmurs Abdo: soft, no masses, no hepatosplenomegaly, BS+, no rebound tenderness Extremities: no edema, pulses 2+ MSK: no joint deformities, normal ROM Neuro: no focal neuro deficits, moving all 4 extremities, CN2-12 intact. Strength 5/5 in all 4 extremities. No nystagmus. Psych: calm, cooperative, AAO x 3 LABORATORY DATA, IMAGING STUDIES, MICROBIOLOGY: Please see below. DVT prophylaxis ordered?: GERMAINaileen, SCDs 39-year-old female past medical history of internal hemorrhoids presents with symptomatic anemia secondary to lower GI bleed presumed to be from her internal hemorrhoids. Dr. Kenyon was consulted ED. Hemoglobin in the ED was 7.3 and 1 unit of blood was ordered. Patient received 2 units of packed red blood cells. Hgb improved to 8.3 and remains stable. # Lower GI bleed: Trend HH Q6H, transfuse for Hgb < 7, consult Dr. Kenyon for possible endoscopy vs colonoscopy. Suspect bleeding internal hemorrhoids. Continue with protonix IV. Hgb stable at 8.3, s/p 2 units pRBC. # Depression: Resume home venlafaxine # Smoker: Nicotine patch, counseled to quit smoking. #DVT prophylaxis: SCDs only VS, I&O, 24H, Fishbone Vital Signs/I&O Vital Signs Date Time Temp Pulse Resp B/P (MAP) Pulse Ox O2 Delivery O2 Flow Rate FiO2 07/23/20 06:00 98.9 85 18 126/67 (86) 98 Room Air I&O- Last 24 Hours up to 6 AM 07/23/20 06:00 Intake Total 800 ml Output Total 0 ml Balance 800 ml Laboratory Data 24H LABS Laboratory Tests 2 07/22/20 18:30: Immature Granulocyte % (Auto) 0.4, Neutrophils (%) (Auto) 45.4, Lymphocytes (%) (Auto) 48.1H, Monocytes (%) (Auto) 4.3, Eosinophils (%) (Auto) 1.4, Basophils (%) (Auto) 0.4, Neutrophils # (Auto) 2.6, Lymphocytes # (Auto) 2.7, Monocytes # (Auto) 0.2, Eosinophils # (Auto) 0.1, Basophils # (Auto) 0.0, Nucleated Red Blood Cells % (auto) 0.0, Prothrombin Time 11.5L, Prothromb Time International Ratio 0.82, D-Dimer, Quantitative < 270 07/22/20 18:40: POC Glucose (Misc Panel) 91, POC Sodium (Misc Panel) 139, POC Potassium (Misc Panel) 3.5, POC Chloride (Misc Panel) 102, POC Total CO2 (Misc Panel) 25.0, POC Blood Urea Nitrogen (Misc Panel 13, POC Ionized Calcium (Misc Panel) 4.6, POC Creatinine (Misc Panel) 0.9, POC Hematocrit (Misc Panel) 22.0L 07/22/20 18:42: POC Beta HCG, Quantitative < 5.0 07/23/20 06:13: Nucleated Red Blood Cells % (auto) 0.0 CBC/BMP Laboratory Tests 07/22/20 18:30 07/23/20 03:28 07/23/20 06:13 CARLITOS ZAMBRANO MD Jul 23, 2020 07:10
[2020-07-23] MEDS: MOM 30ML SUSPENSION UDC PO PRN (10:14)
[2020-07-23] MEDS: PANTOPRAZOLE 40MG VIAL (C9113 PER 1) IV SCH ×2 (10:14→20:16)
[2020-07-23] MEDS ORDERED: BISACODYL 5 MG TAB PO ONE (13:00)
[2020-07-23] MEDS: SENNA 8.6 MG TAB (SENOKOT) PO SCH ×2 (13:42→20:16)
[2020-07-23 15:34] LABS: HEMATOCRIT 27.2 % (36.0-47.0); HEMOGLOBIN 8.7 g/dl (12.0-15.5)
[2020-07-23] MEDS ORDERED: MAGNESIUM CITRATE 300 ML BTL PO ONE (18:00)
[2020-07-23 21:18] LABS: HEMATOCRIT 25.7 % (36.0-47.0)
[2020-07-24 06:00] VITALS: BP 124/63
[2020-07-24] MEDS: MAGNESIUM CITRATE 300 ML BTL PO ONE ×2 (06:08→06:21)
[2020-07-24 06:16] LABS: BASO % 0.5 % (0.0-1.0); EOS # 0.1 10^3/uL (0.0-0.5); EOS % 2.2 % (0.0-3.0); HEMATOCRIT 24.4 % (36.0-47.0); HEMOGLOBIN 7.6 g/dl (12.0-15.5); LYMPH % 48.6 % (24.0-44.0); MEAN CORPUSCULAR HEMOGLOBIN 28.7 pg (27.0-33.0); MEAN CORPUSCULAR HGB CONC 31.1 g/dl (32.0-36.5); MEAN CORPUSCULAR VOLUME 92.1 fl (80.0-96.0); MONO # 0.3 10^3/uL (0.0-0.8); MONO % 7.7 % (0.0-5.0); NEUTROPHILS # 1.7 10^3/uL (1.5-8.5); NEUTROPHILS % 40.8 % (36.0-66.0); PLATELET COUNT, AUTOMATED 231 10^3/uL (150-450); RED BLOOD COUNT 2.65 10^6/uL (4.00-5.40); WHITE BLOOD COUNT 4.1 10^3/uL (4.0-10.0)
[2020-07-24] MEDS: ACETAMINOPHEN TAB 650MG DOSE (2X325MG) PO PRN ×3 (06:21→18:07)
[2020-07-24 06:48] LABS: ALBUMIN 2.5 GM/DL (3.2-5.2); ALT/SGPT 21 U/L (12-78); BILIRUBIN,TOTAL 0.3 MG/DL (0.2-1.0); BLOOD UREA NITROGEN 5 MG/DL (7-18); CALCIUM LEVEL 7.4 MG/DL (8.5-10.1); CARBON DIOXIDE LEVEL 29 MEQ/L (21-32); CHLORIDE LEVEL 113 MEQ/L (98-107); CREATININE FOR GFR 0.81 MG/DL (0.55-1.30); GLOMERULAR FILTRATION RATE > 60.0 (>60); GLUCOSE, FASTING 95 MG/DL (70-100); MAGNESIUM LEVEL 2.4 MG/DL (1.8-2.4); POTASSIUM SERUM 4.1 MEQ/L (3.5-5.1); SODIUM LEVEL 143 MEQ/L (136-145); TOTAL PROTEIN 4.9 GM/DL (6.4-8.2)
[2020-07-24] MEDS: DOCUSATE SODIUM 100 MG CAP PO SCH ×2 (09:00→21:00)
[2020-07-24] MEDS: PANTOPRAZOLE 40MG VIAL (C9113 PER 1) IV SCH (09:00)
[2020-07-24] MEDS: SENNA 8.6 MG TAB (SENOKOT) PO SCH ×2 (09:00→21:00)
[2020-07-24] MEDS ORDERED: propofoL 200 MG/20 ML VIAL As Ordered ONE ×2 (09:46→11:24)
[2020-07-24] MEDS ORDERED: LIDOCAINE 2% 100MG/5ML SDV (FOR ANES.) As Ordered ONE (09:46)
--- NOTE | 2020-07-24 11:26 | ROOR ---
Patient Name: Maya Greenberg Procedure Date: 07/24/2020 10:54 AM Date of : 1980 Age: 39 Room: [place] Gender: Female Note Status: Finalized Procedure: Colonoscopy Indications: Hematochezia Providers: DO Bryson Hernandez MD: 2. Inpatient 2. Inpatient, [facility] Requesting Provider: Medicines: Propofol per Anesthesia Complications: No immediate complications. Estimated blood loss: Minimal. Procedure: Pre-Anesthesia Assessment: - Prior to the procedure, a History and Physical was performed, and patient medications and allergies were reviewed. The patient is competent. The risks and benefits of the procedure and the sedation options and risks were discussed with the patient. All questions were answered and informed consent was obtained. Patient identification and proposed procedure were verified by the physician, the nurse, the anesthesiologist and the care technician in the endoscopy suite. Mental Status Examination: alert and oriented. Airway Examination: normal oropharyngeal airway and neck mobility. Respiratory Examination: clear to auscultation. CV Examination: normal. Prophylactic Antibiotics: The patient does not require prophylactic antibiotics. Prior Anticoagulants: The patient has taken no previous anticoagulant or antiplatelet agents. ASA Grade Assessment: II - A patient with mild systemic disease. After reviewing the risks and benefits, the patient was deemed in satisfactory condition to undergo the procedure. The anesthesia plan was to use monitored anesthesia care (MAC). Immediately prior to administration of medications, the patient was re-assessed for adequacy to receive sedatives. The heart rate, respiratory rate, oxygen saturations, blood pressure, adequacy of pulmonary ventilation, and response to care were monitored throughout the procedure. The physical status of the patient was re-assessed after the procedure. The Colonoscope was introduced through the anus and advanced to the cecum, identified by appendiceal orifice and ileocecal valve. The colonoscopy was performed without difficulty. The patient tolerated the procedure well. Findings: Non-bleeding internal hemorrhoids were found during retroflexion. The hemorrhoids were moderate, large and Grade II (internal hemorrhoids that prolapse but reduce spontaneously). Two bands were successfully placed. A slow ooze remained at the end of the procedure. Estimated blood loss was minimal. Impression: - Non-bleeding internal hemorrhoids. Banded. - No specimens collected. Recommendation: - Repeat colonoscopy in 5-10 years for screening purposes. - Return to my office in 1 month. - Return patient to hospital [facility] for observation. - Resume regular diet today. Meir Manriquez DO 07/24/2020 11:26:24 AM Electronically signed by Meir Manriquez DO Number of Addenda: 0 Note Initiated On: 07/24/2020 10:54 AM Estimated Blood Loss: Estimated blood loss was minimal.
--- NOTE | 2020-07-24 13:14 | IPNPDOC ---
Date Seen The patient was seen on 07/24/20. Progress Note SUBJECTIVE: patient was seen and examined at bedside. Reports persistent fatigue. Having copious BMs due to bowel prep. Bloody per patient. S/p colonoscopy by Dr. Manriquez today. OBJECTIVE PHYSICAL EXAMINATION: VITAL SIGNS: Please see below. General: fatigued HEENT: PERRLA, EOMI, sclerae clear Neck: supple, normal ROM, no JVD Respiratory: lungs CTAB, no wheeze, no rales, no crackles CVS: RRR, normal S1, S2, no murmurs Abdo: soft, no masses, no hepatosplenomegaly, BS+, no rebound tenderness Extremities: no edema, pulses 2+ MSK: no joint deformities, normal ROM Neuro: no focal neuro deficits, moving all 4 extremities, CN2-12 intact. Strength 5/5 in all 4 extremities. No nystagmus. Psych: calm, cooperative, AAO x 3 LABORATORY DATA, IMAGING STUDIES, MICROBIOLOGY: Please see below. DVT prophylaxis ordered?: SCDs, TEDs 39-year-old female past medical history of internal hemorrhoids presents with symptomatic anemia secondary to lower GI bleed presumed to be from her internal hemorrhoids. Dr. Kenyon was consulted ED. Hemoglobin in the ED was 7.3 and 1 unit of blood was ordered. Patient received 2 units of packed red blood cells. Hgb dropped to 7.6, patient continued to be fatigued. S/p colonoscopy today by Dr. Manriquez, banding of internal Grade II hemorrhoids. # Lower GI bleed: s/p units prbc. Hgb 7.6 this morning. S/p colonoscopy by Dr. Manriquez. Non bleeding internal hemorrhoids banded (moderate, large). Will transfuse 1 unit prbc (total 3). Repeat HH. # Depression: Resume home venlafaxine # Smoker: Nicotine patch, counseled to quit smoking. #DVT prophylaxis: SCDs only VS, I&O, 24H, Fishbone Vital Signs/I&O Vital Signs Date Time Temp Pulse Resp B/P (MAP) Pulse Ox O2 Delivery O2 Flow Rate FiO2 07/24/20 11:50 97.6 56 16 118/62 (80) 100 Room Air I&O- Last 24 Hours up to 6 AM 07/24/20 05:59 Intake Total 3760 ml Output Total 1600 ml Balance 2160 ml Laboratory Data 24H LABS Laboratory Tests 2 07/23/20 15:25: Coronavirus (COVID-19)(PCR) NEGATIVE 07/24/20 05:53: Immature Granulocyte % (Auto) 0.2, Neutrophils (%) (Auto) 40.8, Lymphocytes (%) (Auto) 48.6H, Monocytes (%) (Auto) 7.7H, Eosinophils (%) (Auto) 2.2, Basophils (%) (Auto) 0.5, Neutrophils # (Auto) 1.7, Lymphocytes # (Auto) 2.0, Monocytes # (Auto) 0.3, Eosinophils # (Auto) 0.1, Basophils # (Auto) 0.0, Nucleated Red Blood Cells % (auto) 0.0, Anion Gap 1L, Glomerular Filtration Rate > 60.0, Calcium Level 7.4L, Magnesium Level 2.4, Total Bilirubin 0.3, Aspartate Amino Transf (AST/SGOT) 9, Alanine Aminotransferase (ALT/SGPT) 21, Alkaline Phosphatase 29L, Total Protein 4.9L, Albumin 2.5L, Albumin/Globulin Ratio 1.0L CBC/BMP Laboratory Tests 07/23/20 15:10 07/23/20 21:13 07/24/20 05:53 CARLITOS ZAMBRANO MD Jul 24, 2020 13:14
[2020-07-24 14:00] VITALS: BP 130/70
[2020-07-24] MEDS ORDERED: DICYCLOMINE 10 MG CAP PO ONE (14:00)
[2020-07-24 14:57] VITALS: BP 130/70
[2020-07-24 15:12] VITALS: BP 133/68
[2020-07-24 16:12] VITALS: BP 131/65
[2020-07-24 19:36] LABS: HEMATOCRIT 27.4 % (36.0-47.0); HEMOGLOBIN 8.7 g/dl (12.0-15.5)
[2020-07-24] MEDS: FERROUS SULFATE 325MG TAB PO SCH (21:53)
[2020-07-24 22:00] VITALS: BP 130/68
[2020-07-24] MEDS: VENLAFAXINE **XR** 75MG CAPSULE PO SCH (22:58)
[2020-07-24] MEDS: PANTOPRAZOLE 40MG TAB (PROTONIX) PO SCH (22:59)
[2020-07-25] VITALS (7 sets, daily range): BP systolic 125–147; BP diastolic 69–81
[2020-07-25 06:56] LABS: BASO % 0.5 % (0.0-1.0); EOS # 0.1 10^3/uL (0.0-0.5); EOS % 1.4 % (0.0-3.0); HEMATOCRIT 25.2 % (36.0-47.0); LYMPH # 1.7 10^3/uL (1.5-5.0); LYMPH % 38.9 % (24.0-44.0); MEAN CORPUSCULAR HEMOGLOBIN 29.1 pg (27.0-33.0); MEAN CORPUSCULAR HGB CONC 31.7 g/dl (32.0-36.5); MEAN CORPUSCULAR VOLUME 91.6 fl (80.0-96.0); MONO # 0.3 10^3/uL (0.0-0.8); MONO % 6.5 % (0.0-5.0); NEUTROPHILS # 2.3 10^3/uL (1.5-8.5); NEUTROPHILS % 52.5 % (36.0-66.0); PLATELET COUNT, AUTOMATED 239 10^3/uL (150-450); RED BLOOD COUNT 2.75 10^6/uL (4.00-5.40); WHITE BLOOD COUNT 4.3 10^3/uL (4.0-10.0)
[2020-07-25 07:20] LABS: ALBUMIN 2.6 GM/DL (3.2-5.2); ALT/SGPT 21 U/L (12-78); BILIRUBIN,TOTAL 0.3 MG/DL (0.2-1.0); BLOOD UREA NITROGEN 7 MG/DL (7-18); CALCIUM LEVEL 7.4 MG/DL (8.5-10.1); CARBON DIOXIDE LEVEL 26 MEQ/L (21-32); CHLORIDE LEVEL 112 MEQ/L (98-107); CREATININE FOR GFR 0.81 MG/DL (0.55-1.30); GLOMERULAR FILTRATION RATE > 60.0 (>60); GLUCOSE, FASTING 89 MG/DL (70-100); MAGNESIUM LEVEL 2.1 MG/DL (1.8-2.4); POTASSIUM SERUM 3.9 MEQ/L (3.5-5.1); SODIUM LEVEL 144 MEQ/L (136-145); TOTAL PROTEIN 4.8 GM/DL (6.4-8.2)
--- NOTE | 2020-07-25 07:54 | CR ---
DATE OF CONSULTATION: 07/23/2020 HISTORY OF PRESENT ILLNESS: The patient was admitted overnight with some rectal bleeding. The patient has a history of anemia and bleeding that has been going on for quite some time now, essentially came in with bright-red blood per rectum early this summer and we rubber-banded some hemorrhoids, however I did not see any active bleeding from those hemorrhoids, definitely had some inflamed hemorrhoids but once again I did not see any active bleeding that would explain the current issue. She still has some bright-red blood per rectum even after discharge but more recently has developed a significant amount of bright-red blood per rectum and she has continued to take some Milk of Magnesia on a daily basis for some chronic constipation that she has had. She has had a Gastroenterology consult in the past for this chronic constipation but more importantly the constipation she states is never hard stools and only has a bowel movement with these laxatives and it is watery when she has it. The last colonoscopy was about 2 1/2 years ago, almost 3 years. MEDICAL HISTORY: Significant for a history of psoriatic arthritis, history of appendectomy, history of hemorrhoid banding, history of colonoscopy, history of anxiety. PHYSICAL EXAMINATION: GENERAL: Physical exam reveals a 39-year-old female who looks stated age. HEENT: Unremarkable. NECK: Supple without adenopathy. LUNGS: Clear to auscultation without crackles, wheezes or rhonchi. HEART: Regular. ABDOMEN: Soft, nontender and nondistended. IMPRESSION: Patient with rectal bleeding of undetermined etiology, unfortunately with her constipation issue and it almost sounds as though she is partially obstructed given her presentation I do feel she needs a repeat endoscopy. Will schedule a flexible sigmoidoscopy for her and possible rubber- banding. I can do this on , however I asked my colleague, Dr. Manriquez if would be able to proceed with this tomorrow on 07/24, he states he would be able to perform this after his endoscopy cases. If she is doing well therefore, she could be discharged home even on the day of the procedure. REJI
[2020-07-25] MEDS: SENNA 8.6 MG TAB (SENOKOT) PO SCH ×2 (09:48→20:01)
[2020-07-25] MEDS: DOCUSATE SODIUM 100 MG CAP PO SCH ×2 (09:48→20:02)
[2020-07-25] MEDS: PANTOPRAZOLE 40MG TAB (PROTONIX) PO SCH ×2 (09:48→20:02)
--- NOTE | 2020-07-25 09:49 | IPNPDOC ---
Date Seen The patient was seen on 07/25/20. Progress Note SUBJECTIVE: Patient seen and examined at bedside this morning. Is post colonoscopy on 07/25/2020. Reports having ongoing bright red blood per rectum, noted blood in the toilet bowl. Fatigue is improved. Denies chest pain, chest breath, nausea, vomiting. OBJECTIVE PHYSICAL EXAMINATION: VITAL SIGNS: Please see below. General: fatigued HEENT: PERRLA, EOMI, sclerae clear Neck: supple, normal ROM, no JVD Respiratory: lungs CTAB, no wheeze, no rales, no crackles CVS: RRR, normal S1, S2, no murmurs Abdo: soft, no masses, no hepatosplenomegaly, BS+, no rebound tenderness Extremities: no edema, pulses 2+ MSK: no joint deformities, normal ROM Neuro: no focal neuro deficits, moving all 4 extremities, CN2-12 intact. Strength 5/5 in all 4 extremities. No nystagmus. Psych: calm, cooperative, AAO x 3 LABORATORY DATA, IMAGING STUDIES, MICROBIOLOGY: Please see below. DVT prophylaxis ordered?: SCDs, TEDs 39-year-old female past medical history of internal hemorrhoids presents with symptomatic anemia secondary to lower GI bleed presumed to be from her internal hemorrhoids. Dr. Kenyon was consulted ED. Hemoglobin in the ED was 7.3 and 1 unit of blood was ordered. Patient received 2 units of packed red blood cells. Hgb dropped to 7.6, patient continued to be fatigued. S/p colonoscopy by Dr. Manriquez on 07/25/20, banding of internal Grade II hemorrhoids. # Lower GI bleed: Hgb this morning 8.0, down from 8.7. Having ongoing bright red blood per rectum. S/p colonoscopy by Dr. Manriquez. Non bleeding internal hemorrhoids banded (moderate, large). Transfuse additional unit for total of [address] P RBC. Discuss[address] with Dr. Manriquez this morning, patient had very large hemorrhoids which are expected to bleed for up to a week after banding. However, if significant bleeding persists, resulting in a drop in hemoglobin, patient may require a more extensive anal and rectal exam under anesthesia in the operating room. Recommend continue monitoring hgb inpatient. # Depression: Resumed home venlafaxine # Smoker: Nicotine patch, counseled to quit smoking. #DVT prophylaxis: SCDs only VS, I&O, 24H, [facility] Vital Signs/I&O Vital Signs Date Time Temp Pulse Resp B/P (MAP) Pulse Ox O2 Delivery O2 Flow Rate FiO2 07/25/20 06:00 98.5 67 18 125/69 (87) 98 Room Air I&O- Last 24 Hours up to 6 AM 07/25/20 06:00 Intake Total 2990 ml Output Total 0 ml Balance 2990 ml Laboratory Data 24H LABS Laboratory Tests 2 07/25/20 06:39: Immature Granulocyte % (Auto) 0.2, Neutrophils (%) (Auto) 52.5, Lymphocytes (%) (Auto) 38.9, Monocytes (%) (Auto) 6.5H, Eosinophils (%) (Auto) 1.4, Basophils (%) (Auto) 0.5, Neutrophils # (Auto) 2.3, Lymphocytes # (Auto) 1.7, Monocytes # (Auto) 0.3, Eosinophils # (Auto) 0.1, Basophils # (Auto) 0.0, Nucleated Red Blood Cells % (auto) 0.0, Anion Gap 6L, Glomerular Filtration Rate > 60.0, Calcium Level 7.4L, Magnesium Level 2.1, Total Bilirubin 0.3, Aspartate Amino Transf (AST/SGOT) 8, Alanine Aminotransferase (ALT/SGPT) 21, Alkaline Phosphatase 29L, Total Protein 4.8L, Albumin 2.6L, Albumin/Globulin Ratio 1.2 CBC/BMP Laboratory Tests 07/24/20 19:24 07/25/20 06:39 CARLITSO ZAMBRANO MD Jul 25, 2020 09:49
[2020-07-25] MEDS: ACETAMINOPHEN TAB 650MG DOSE (2X325MG) PO PRN (11:50)
[2020-07-25] MEDS ORDERED: PREPARATION H SUPP (HEMORRHOID) PR ONE (15:00)
[2020-07-25] MEDS: MOM 30ML SUSPENSION UDC PO PRN (15:37)
[2020-07-25] MEDS: OCTREOTIDE ACETATE 100MCG/ML VIAL (J2354 PER 25MCG) IV SCH (17:36)
[2020-07-25 18:56] LABS: HEMOGLOBIN 9.4 g/dl (12.0-15.5)
[2020-07-25] MEDS: FERROUS SULFATE 325MG TAB PO SCH (20:01)
[2020-07-25] MEDS: VENLAFAXINE **XR** 75MG CAPSULE PO SCH (20:02)
[2020-07-25] MEDS: PREPARATION H SUPP (HEMORRHOID) PR SCH (20:02)
[2020-07-25] MEDS ORDERED: DICYCLOMINE 10 MG CAP PO ONE (20:45)
[2020-07-26] MEDS: OCTREOTIDE ACETATE 100MCG/ML VIAL (J2354 PER 25MCG) IV SCH ×4 (01:05→17:23)
[2020-07-26 06:00] VITALS: BP 111/72
--- NOTE | 2020-07-26 07:12 | IPNPDOC ---
Date Seen The patient was seen on 07/26/20. Progress Note SUBJECTIVE: Patient seen and examined at bedside this morning. S/p post colonoscopy on 07/25/2020. Denies chest pain, chest breath, nausea, vomiting. having ongoing lower GI bleeding. Hgb has improved. OBJECTIVE PHYSICAL EXAMINATION: VITAL SIGNS: Please see below. General: non toxic appearance HEENT: PERRLA, EOMI, sclerae clear Neck: supple, normal ROM, no JVD Respiratory: lungs CTAB, no wheeze, no rales, no crackles CVS: RRR, normal S1, S2, no murmurs Abdo: soft, no masses, no hepatosplenomegaly, BS+, no rebound tenderness Extremities: no edema, pulses 2+ MSK: no joint deformities, normal ROM Neuro: no focal neuro deficits, moving all 4 extremities, CN2-12 intact. Strength 5/5 in all 4 extremities. No nystagmus. Psych: calm, cooperative, AAO x 3 LABORATORY DATA, IMAGING STUDIES, MICROBIOLOGY: Please see below. DVT prophylaxis ordered?: SCDs, TEDs 39-year-old female past medical history of internal hemorrhoids presents with symptomatic anemia secondary to lower GI bleed presumed to be from her internal hemorrhoids. Dr. Kenyon was consulted ED. Hemoglobin in the ED was 7.3 and 1 unit of blood was ordered. Patient received 2 units of packed red blood cells. Hgb dropped to 7.6, patient continued to be fatigued. S/p colonoscopy by Dr. Manriquez on 07/25/20, banding of internal Grade II hemorrhoids. # Lower GI bleed: Hgb improved to 9.2. Received total 4 units prbc. Morning labs pending. S/p colonoscopy by Dr. Manriquez. Non bleeding internal hemorrhoids banded (moderate, large). Per Dr. Manriquez patient large hemorrhoids which are expected to bleed for up to a week after banding. If severe bleeding continues, OR for exam under anesthesia. Discussed with Dr. Blair this morning, plan to take patient to OR on 07/27/20 for detailed anorectal exploration under anesthesia. # Depression: Resumed home venlafaxine # Smoker: Nicotine patch, counseled to quit smoking. #DVT prophylaxis: SCDs only VS, I&O, 24H, Fishbone Vital Signs/I&O Vital Signs Date Time Temp Pulse Resp B/P (MAP) Pulse Ox O2 Delivery O2 Flow Rate FiO2 07/26/20 06:00 97.9 60 14 111/72 (85) 99 Room Air I&O- Last 24 Hours up to 6 AM 07/26/20 06:00 Intake Total 2030 ml Output Total 0 ml Balance 2030 ml Laboratory Data CBC/BMP Laboratory Tests 07/25/20 18:40 CARLITOS ZAMBRANO MD Jul 26, 2020 07:12
[2020-07-26 08:02] LABS: BASO % 0.3 % (0.0-1.0); EOS # 0.1 10^3/uL (0.0-0.5); EOS % 1.7 % (0.0-3.0); HEMATOCRIT 29.5 % (36.0-47.0); HEMOGLOBIN 9.2 g/dl (12.0-15.5); LYMPH # 1.4 10^3/uL (1.5-5.0); LYMPH % 24.1 % (24.0-44.0); MEAN CORPUSCULAR HEMOGLOBIN 28.8 pg (27.0-33.0); MEAN CORPUSCULAR HGB CONC 31.2 g/dl (32.0-36.5); MEAN CORPUSCULAR VOLUME 92.2 fl (80.0-96.0); MONO # 0.3 10^3/uL (0.0-0.8); MONO % 5.6 % (0.0-5.0); PLATELET COUNT, AUTOMATED 273 10^3/uL (150-450); WHITE BLOOD COUNT 5.9 10^3/uL (4.0-10.0)
[2020-07-26] MEDS: SENNA 8.6 MG TAB (SENOKOT) PO SCH ×2 (08:06→20:16)
[2020-07-26] MEDS: PREPARATION H SUPP (HEMORRHOID) PR SCH ×3 (08:06→21:00)
[2020-07-26] MEDS: DOCUSATE SODIUM 100 MG CAP PO SCH ×2 (08:06→20:15)
[2020-07-26] MEDS: PANTOPRAZOLE 40MG TAB (PROTONIX) PO SCH ×2 (08:06→20:15)
[2020-07-26] MEDS: ACETAMINOPHEN TAB 650MG DOSE (2X325MG) PO PRN (08:11)
[2020-07-26 08:37] LABS: ALBUMIN 2.8 GM/DL (3.2-5.2); ALT/SGPT 32 U/L (12-78); BILIRUBIN,TOTAL 0.4 MG/DL (0.2-1.0); BLOOD UREA NITROGEN 7 MG/DL (7-18); CALCIUM LEVEL 7.8 MG/DL (8.5-10.1); CARBON DIOXIDE LEVEL 26 MEQ/L (21-32); CHLORIDE LEVEL 110 MEQ/L (98-107); CREATININE FOR GFR 0.73 MG/DL (0.55-1.30); GLOMERULAR FILTRATION RATE > 60.0 (>60); GLUCOSE, FASTING 94 MG/DL (70-100); MAGNESIUM LEVEL 2.2 MG/DL (1.8-2.4); POTASSIUM SERUM 4.1 MEQ/L (3.5-5.1); SODIUM LEVEL 141 MEQ/L (136-145); TOTAL PROTEIN 5.1 GM/DL (6.4-8.2)
[2020-07-26] MEDS ORDERED: METAMUCIL (PSYLLIUM) PACKET PO SCH (09:00)
[2020-07-26] MEDS ORDERED: FIORICET TAB PO ONE (13:00)
[2020-07-26 14:00] VITALS: BP 136/72
--- NOTE | 2020-07-26 15:11 | IPN ---
DATE: 07/25/2020 SUBJECTIVE: Patient underwent colonoscopy yesterday which revealed no significant abnormalities with a rubber banding of some hemorrhoids. When I talked to Dr. Manriquez about his findings he felt that there were some hemorrhoids that were mildly friable, but not significantly inflamed and not significantly bleeding and despite that today she has had some bleeding that has occurred with bowel movements. She is not complaining of any nausea, no vomiting. More importantly this morning she had concerns with her bleeding that she may need something done so she ordered a big breakfast and has had a big breakfast and lunch. She has had some ongoing bright red blood per rectum of multiple episodes. It is hard to tell exactly how much she has, but she has definitely had a decrease in her hematocrit. When I discussed her previous episode where I rubber banded some hemorrhoids in the operating room earlier this summer she states that she did not have any further bleeding from the site until the recent episode. She still had to use Milk of Magnesia to have bowel movements every day and has not pursued that issue with GI who she has seen in the past. IMPRESSION AND PLAN: I also had a discussion with her and her significant other who was in the room concerning the bleeding issue at this time. We have discussed using some topical medications at this time and specifically will make her n.p.o. after midnight. Dr. Blair will be covering for me for the weekend starting tomorrow and thus I will discuss her issues with him. If she has ongoing bleeding I would highly recommend that repeated anoscopy/possible additional rubber banding/ligation might be necessary. Otherwise if it seems to be under control with her n.p.o. overnight and she has no further bleeding it may be reasonable to start her on a clear liquid diet tomorrow and then see how she does for 24 hours and if no progression or problems then to advance her diet to a regular and if she tolerates that without bleeding again then have her follow up as an outpatient as previously planned would be reasonable. REJI
[2020-07-26] MEDS: FERROUS SULFATE 325MG TAB PO SCH (20:16)
[2020-07-26] MEDS: VENLAFAXINE **XR** 75MG CAPSULE PO SCH (20:16)
[2020-07-26] MEDS ORDERED: OCTR100I IV (21:20)
[2020-07-26] MEDS ORDERED: PANT40TA29 PO (21:20)
[2020-07-26] MEDS ORDERED: HEMO1SUP10 PR (21:20)
--- NOTE | 2020-07-26 21:38 | DS.PDOC ---
Discharge Summary General Date of Admission Jul 22, 2020 at 20:35 Date of Discharge 07/26/20 Discharge Summary PROCEDURES PERFORMED DURING STAY: Colonsocopy with banding 07/24/20: Findings: Non-bleeding internal hemorrhoids were found during retroflexion. The hemorrhoids were moderate, large and Grade II (internal hemorrhoids that prolapse but reduce spontaneously). Two bands were successfully placed. A slow ooze remained at the end of the procedure. Estimated blood loss was minimal. Impression: - Non-bleeding internal hemorrhoids. Banded. - No specimens collected. Recommendation: - Repeat colonoscopy in 5-10 years for screening purposes. - Return to my office in 1 month. - Return patient to hospital [facility] for observation. - Resume regular diet today. ADMITTING DIAGNOSES: Lower GI bleed Depression Smoker DISCHARGE DIAGNOSES: Lower GI bleed secondary to internal hemorrhoids Depression Smoker COMPLICATIONS/CHIEF COMPLAINT: Lower Gi Bleed, Sympotmatic Anemia. HISTORY OF PRESENT ILLNESS: 39-year-old female past medical history of internal hemorrhoids presents with symptomatic anemia. Complaining of shortness of breath and palpitations for the last 3 days. These episodes have happened on multiple occasions in the past. She was found to have internal hemorrhoids status post banding in March of this year by Dr. Kenyon. She tells me that with every bowel movement she has episodes of bright red blood per rectum. Tells me she is always constipated and takes milk of magnesia daily which helps a little. She has not seen gastroenterology in the past to workup her chronic constipation. . HOSPITAL COURSE: 39-year-old female past medical history of internal hemorrhoids presents with symptomatic anemia secondary to lower GI bleed presumed to be from her internal hemorrhoids. Dr. Kenyon was consulted ED. Hemoglobin in the ED was 7.3 and 1 unit of blood was ordered. Patient received 2 units of packed red blood cells. Hgb dropped to 7.6, patient continued to be fatigued. S/p colonoscopy by Dr. Manriquez on 07/25/20, banding of internal Grade II hemorrhoids. After colonoscopy significant amount of rectal bleeding continued requiring ongoing blood transfusions. Patient required further examination under anesthesia in the water. However, initial consulting surgeon are not available. Transfer to [facility] for colorectal surgery examination and workup. # Lower GI bleed: initial Hgb 7.3. Hgb improved to 9.2. Received total 4 units prbc. S/p colonoscopy by Dr. Manriquez on 07/24/20. Non bleeding internal hemorrhoids banded (moderate, large). Per Dr. Manriquez patient large hemorrhoids which are expected to bleed for up to a week after banding. Attempt to reduce a mount of bleeding with octreotide 100 g every 8 hours IV, phenylephrine suppositories per Dr. Kenyon. Required further eval in OR under anesthesia. Dr. Kenyon not available over the weekend, and transfer of care to another surgeon not possible. Patient transferred to [facility] for c olorectal surgery evaluation. #R lung base opacity: questionable R lung opacity on CXR, possibly due to pneumonitis vs atelectasis. Patient is without cough, sputum, fever or leukocytosis. Continue to monitor clinically. # Depression: Resumed home venlafaxine # Smoker: Nicotine patch, counseled to quit smoking. #DVT prophylaxis: SCDs only DISCHARGE MEDICATIONS: Please see below. ALLERGIES: Please see below. PHYSICAL EXAMINATION ON DISCHARGE: VITAL SIGNS: Please see below. General: non toxic appearance HEENT: PERRLA, EOMI, sclerae clear Neck: supple, normal ROM, no JVD Respiratory: lungs CTAB, no wheeze, no rales, no crackles CVS: RRR, normal S1, S2, no murmurs Abdo: soft, no masses, no hepatosplenomegaly, BS+, no rebound tenderness Extremities: no edema, pulses 2+ MSK: no joint deformities, normal ROM Neuro: no focal neuro deficits, moving all 4 extremities, CN2-12 intact. Strength 5/5 in all 4 extremities. No nystagmus. Psych: calm, cooperative, AAO x 3 LABORATORY DATA: Please see below. IMAGING: CXR 07/22/20: FINDINGS: Lungs: Suggestion of increased opacity at the right lung base adjacent to the right hemidiaphragmatic contour. An evolving pneumonitis not excluded. Lungs otherwise clear. Pleural space: Unremarkable. No pleural effusion. No pneumothorax. Heart/Mediastinum: Unremarkable. No cardiomegaly. Bones/joints: Unremarkable. IMPRESSION: 1. Suggestion of increased opacity at the right lung base adjacent to the right hemidiaphragmatic contour. An evolving pneumonitis not excluded. 2. Lungs otherwise clear. PROGNOSIS:good ACTIVITY: [As tolerated]. DIET: regular DISCHARGE PLAN: Transferred to [facility] for colorectal surgery evaluation DISCHARGE INSTRUCTIONS: Please follow-up with the primary care doctor within 3-5 days after discharge. Please follow up with general surgery within 1-2 weeks of discharge. She developed profuse bleeding, fatigue, dizziness, lightheadedness, chest pain, chest breath, palpitations or otherwise worsening her symptoms. Please call 911 or return to the ER. DISCHARGE CONDITION: [Stable]. TIME SPENT ON DISCHARGE: 35 minutes. Vital Signs/I&Os Vital Signs Date Time Temp Pulse Resp B/P (MAP) Pulse Ox O2 Delivery O2 Flow Rate FiO2 07/26/20 14:00 98.5 80 18 136/72 (93) 98 Room Air I&O- Last 24 Hours up to 6 AM 07/26/20 06:00 Intake Total 2030 ml Output Total 0 ml Balance 2030 ml Laboratory Data Labs 24H Laboratory Tests 2 07/26/20 07:28: Immature Granulocyte % (Auto) 0.3, Neutrophils (%) (Auto) 68.0H, Lymphocytes (%) (Auto) 24.1, Monocytes (%) (Auto) 5.6H, Eosinophils (%) (Auto) 1.7, Basophils (%) (Auto) 0.3, Neutrophils # (Auto) 4.0, Lymphocytes # (Auto) 1.4L, Monocytes # (Auto) 0.3, Eosinophils # (Auto) 0.1, Basophils # (Auto) 0.0, Nucleated Red Blood Cells % (auto) 0.0, Anion Gap 5L, Glomerular Filtration Rate > 60.0, Calcium Level 7.8L, Magnesium Level 2.2, Total Bilirubin 0.4, Aspartate Amino Transf (AST/SGOT) 12, Alanine Aminotransferase (ALT/SGPT) 32, Alkaline Phosphatase 39L, Total Protein 5.1L, Albumin 2.8L, Albumin/Globulin Ratio 1.2 CBC/BMP Laboratory Tests 07/26/20 07:28 Discharge Medications Scheduled Ascorbic Acid (Vitamin C) 250 Mg Tablet, 250 MG PO QHS, (Reported) Ferrous Sulfate (Ferrous Sulfate) 325 Mg Tablet, 325 MG PO QHS, (Reported) Octreotide Acetate (Octreotide Acetate) 100 Mcg/1 Ml Vial, 100 MCG IV Q8H Pantoprazole Sodium (Pantoprazole Sodium) 40 Mg Tablet.dr, 40 MG PO BID Phenylephrine HCl/[place] Butter (Hemorrhoidal Suppositories) 1 Each Supp.rect, 1 SUP CO BID Venlafaxine HCl (Venlafaxine HCl ER) 150 Mg Cap.er.24h, 150 MG PO QHS, (Reported) Allergies Coded Allergies: No Known Allergies (Verified , 04/16/03) CARLITOS ZAMBRANO MD Jul 26, 2020 21:38
[2020-07-26 22:00] VITALS: BP 162/82
== END 2020-07-26 22:59 | disposition short-term general hospital (02) | DRG 226 ==
LOC: M ED 16:52 → M ED INP 20:35 → ENRESERV 23:08 → M MS5PR 23:50
PROVIDERS: ADMIT Family Medicine; ATTEND Family Medicine
PROC: 30233N1 Transfusion of Nonautologous Red Blood Cells into Peripheral Vein, Percutaneous Approach (ICD-10-PCS; 2020-07-22)
PROC: 06LY4ZC Occlusion of Hemorrhoidal Plexus, Percutaneous Endoscopic Approach (ICD-10-PCS; principal; 2020-07-24 10:45)
DX: K62.5 Hemorrhage of anus and rectum (principal); L40.50 Arthropathic psoriasis, unspecified; F32.9 Major depressive disorder, single episode, unspecified; K64.1 Second degree hemorrhoids; K59.09 Other constipation; F17.290 Nicotine dependence, other tobacco product, uncomplicated; F41.9 Anxiety disorder, unspecified; Z90.49 Acquired absence of other specified parts of digestive tract

== ENCOUNTER → 2020-08-15 | Outpatient (REF) | payer OTHER ==
[~2020-08-15] MED LIST changes: +FERR325T18 PO; +HEMO1SUP10 PR; +OCTR100I IV; +PANT40TA29 PO
== END ==
LOC: M SFHCPLAZ 13:59
PROVIDERS: ATTEND Family Medicine
DX: D50.8 Other iron deficiency anemias (principal)

== ENCOUNTER → 2020-09-17 | Outpatient (CLI) | payer SELFPAY | LOC: M LABSMTC 16:03 | PROVIDERS: ATTEND Pediatrics | DX: Z11.59 Encounter for screening for other viral diseases (principal) ==

== ENCOUNTER → 2021-10-23 | Outpatient (CLI) | payer OTHER ==
[~2021-10-23] MED LIST changes: +FLUO-96 PO; -FLUO20CA20 PO
[2021-10-23 19:36] LABS: HEMOGLOBIN A1c 5.1 %
[2021-10-23 20:05] LABS: ALBUMIN 4.1 GM/DL (3.2-5.2); ALT/SGPT 42 U/L (12-78); BILIRUBIN,TOTAL 0.4 MG/DL (0.2-1.0); BLOOD UREA NITROGEN 15 MG/DL (7-18); C REACTIVE PROTEIN QUANTITATIV 2.28 MG/DL (0.00-0.30); CALCIUM LEVEL 9.2 MG/DL (8.5-10.1); CARBON DIOXIDE LEVEL 26 MEQ/L (21-32); CHLORIDE LEVEL 104 MEQ/L (98-107); CREATININE FOR GFR 0.83 MG/DL (0.55-1.30); GLOMERULAR FILTRATION RATE > 60.0 (>60); GLUCOSE, FASTING 82 MG/DL (70-100); POTASSIUM SERUM 4.6 MEQ/L (3.5-5.1); SODIUM LEVEL 140 MEQ/L (136-145); THYROID STIMULATING HORMONE 0.549 uIU/ML (0.358-3.740); TOTAL PROTEIN 7.3 GM/DL (6.4-8.2)
== END ==
LOC: M WUC 14:55
PROVIDERS: ATTEND Student in an Organized Health Care Education/Training Program
DX: L40.50 Arthropathic psoriasis, unspecified (principal); R53.83 Other fatigue

== ENCOUNTER → 2021-10-23 | Outpatient (REF) | payer OTHER | LOC: M SFHCPLAZ 14:33 | PROVIDERS: ATTEND Family Medicine | DX: Z53.9 Procedure and treatment not carried out, unspecified reason (principal); L40.50 Arthropathic psoriasis, unspecified; R53.82 Chronic fatigue, unspecified ==

== ENCOUNTER → 2022-05-26 | Outpatient (REF) | payer OTHER | LOC: M SFHCPLAZ 16:44 | PROVIDERS: ATTEND Student in an Organized Health Care Education/Training Program | DX: B34.9 Viral infection, unspecified (principal) ==

== ENCOUNTER 2022-12-23 18:41 | Inpatient (IN) | payer OTHER ==
[~2022-12-23] VITALS: Ht 167.6 cm; Wt 66.9 kg
[2022-12-23 20:23] LABS: BASO % 0.2 % (0.0-1.0); EOS % 0.1 % (0.0-3.0); HEMOGLOBIN 13.9 g/dl (12.0-15.5); LYMPH # 1.5 10^3/uL (1.5-5.0); LYMPH % 11.6 % (24.0-44.0); MEAN CORPUSCULAR HEMOGLOBIN 31.4 pg (27.0-33.0); MEAN CORPUSCULAR HGB CONC 33.9 g/dl (32.0-36.5); MEAN CORPUSCULAR VOLUME 92.6 fl (80.0-96.0); MONO # 0.7 10^3/uL (0.0-0.8); MONO % 5.3 % (2.0-8.0); NEUTROPHILS # 10.6 10^3/uL (1.5-8.5); NEUTROPHILS % 82.3 % (36.0-66.0); PLATELET COUNT, AUTOMATED 294 10^3/uL (150-450); RED BLOOD COUNT 4.43 10^6/uL (4.00-5.40); WHITE BLOOD COUNT 12.9 10^3/uL (4.0-10.0)
[2022-12-23 20:44] LABS: HCG, SERUM QUALITATIVE NEGATIVE (NEGATIVE); LIPASE 21 U/L (12-53)
[2022-12-23 20:45] LABS: ALBUMIN 3.2 G/DL (3.2-5.2); ALKALINE PHOSPHATASE 104 U/L (46-116); ALT/SGPT 139 U/L (7.0-40); AST/SGOT 118 U/L (<34); BILIRUBIN,DIRECT 0.3 MG/DL (<0.4); BILIRUBIN,TOTAL 0.9 MG/DL (0.3-1.2); BLOOD UREA NITROGEN 9 MG/DL (9-23); CALCIUM LEVEL 8.4 MG/DL (8.5-10.1); CARBON DIOXIDE LEVEL 23 MMOL/L (20-31); CHLORIDE LEVEL 100 MMOL/L (98-107); CREATININE FOR GFR 0.68 MG/DL (0.55-1.30); GLOMERULAR FILTRATION RATE > 60.0 (>58); GLUCOSE, FASTING 90 MG/DL (60-100); POTASSIUM SERUM 3.9 MMOL/L (3.5-5.1); SODIUM LEVEL 133 MMOL/L (136-145); TOTAL PROTEIN 6.2 G/DL (5.7-8.2)
[2022-12-23] MEDS ORDERED: KETOROLAC 30 MG/ML 1ML VIAL IV ONE (20:50)
[2022-12-23] MEDS ORDERED: NS 1,000 ML IV ONE ×2 (20:50→23:50)
[2022-12-23] MEDS ORDERED: cefTRIAXone SOD 1 GM in D5W MINI-BAG PLUS 50 ML IV ONE (21:55)
[2022-12-23] MEDS ORDERED: ACET-897 PO (22:34)
[2022-12-23] MEDS ORDERED: HOME MED LIST COMPLETE! XX SCH (22:35)
[2022-12-23] MEDS ORDERED: MORPHINE 2 MG/ML 1ML VIAL IV ONE (22:45)
[2022-12-24 00:10] LABS: BARBITURATES URINE NEGATIVE (NEGATIVE); BENZODIAZEPINES URINE NEGATIVE (NEGATIVE); CANNABINOIDS URINE NEGATIVE (NEGATIVE); METHADONE URINE NEGATIVE (NEGATIVE); OPIATES URINE NEGATIVE (NEGATIVE); PHENCYCLIDINE URINE NEGATIVE (NEGATIVE)
[2022-12-24 00:16] LABS: AMPHETAMINES LEVEL URINE POSITIVE (NEGATIVE); COCAINE METABOLITE URINE POSITIVE (NEGATIVE)
[2022-12-24] MEDS ORDERED: HYDROmorphone 2 MG TAB PO PRN (00:25)
[2022-12-24] MEDS ORDERED: ACETAMINOPHEN TAB 650MG DOSE (2X325MG) PO PRN (00:25)
[2022-12-24] MEDS: HYDROMORPHONE HCL 0.5 MG/ 0.5 ML SYRINGE IV PRN ×3 (01:34→08:46)
[2022-12-24 01:57] LABS: RSV AMPLIFICATION NEGATIVE (NEGATIVE)
[2022-12-24 02:48] VITALS: BP 116/84
[2022-12-24] MEDS: HEPARIN SOD (PORCINE) 5000UNITS/ML 1ML VIAL/SYRINGE SC SCH ×3 (04:31→20:37)
[2022-12-24 05:15] VITALS: BP 123/82
[2022-12-24 07:38] LABS: HEMATOCRIT 35.4 % (36.0-47.0); MEAN CORPUSCULAR HEMOGLOBIN 31.6 pg (27.0-33.0); MEAN CORPUSCULAR HGB CONC 33.9 g/dl (32.0-36.5); MEAN CORPUSCULAR VOLUME 93.2 fl (80.0-96.0); PLATELET COUNT, AUTOMATED 257 10^3/uL (150-450); WHITE BLOOD COUNT 12.5 10^3/uL (4.0-10.0)
[2022-12-24 08:33] LABS: HEPATITIS B SURFACE ANTIGEN NEGATIVE (NEGATIVE)
[2022-12-24 08:46] LABS: HIV 1&2 SCREEN CENTAUR NEGATIVE (NEGATIVE)
[2022-12-24] MEDS: NICOTINE 7 MG/24 HR TRANSDERMAL TD SCH (08:46)
[2022-12-24 08:54] LABS: HEPATITIS C VIRUS ABY INDEX < 0.0 INDEX (<0.8)
[2022-12-24 08:55] LABS: HEPATITIS B CORE ANTIBODY IGM NEGATIVE (NEGATIVE)
[2022-12-24 08:56] LABS: ALBUMIN 2.4 G/DL (3.2-5.2); ALKALINE PHOSPHATASE 111 U/L (46-116); ALT/SGPT 112 U/L (7.0-40); AST/SGOT 66 U/L (<34); BILIRUBIN,TOTAL 0.5 MG/DL (0.3-1.2); BLOOD UREA NITROGEN 11 MG/DL (9-23); CALCIUM LEVEL 7.6 MG/DL (8.5-10.1); CARBON DIOXIDE LEVEL 25 MMOL/L (20-31); CHLORIDE LEVEL 104 MMOL/L (98-107); CREATININE FOR GFR 0.73 MG/DL (0.55-1.30); GLOMERULAR FILTRATION RATE > 60.0 (>58); GLUCOSE, FASTING 109 MG/DL (60-100); POTASSIUM SERUM 3.5 MMOL/L (3.5-5.1); SODIUM LEVEL 135 MMOL/L (136-145)
[2022-12-24] MEDS ORDERED: NS 1,000 ML IV ONE (09:50)
[2022-12-24] MEDS: MORPHINE 4 MG/ML 1ML VIAL IV PRN ×4 (11:54→21:32)
[2022-12-24 14:00] VITALS: BP 119/76
[2022-12-24 20:43] VITALS: BP 125/74
[2022-12-24] MEDS ORDERED: VENLAFAXINE **XR** 75MG CAPSULE PO SCH (21:00)
[2022-12-24] MEDS ORDERED: cefTRIAXone SOD 1GM VIAL IV SCH (22:00)
[2022-12-24] MEDS ORDERED: cefTRIAXone SOD 1 GM in D5W MINI-BAG PLUS 50 ML IV SCH (22:00)
[2022-12-24] MEDS ORDERED: cefTRIAXone SOD 1GM VIAL IM SCH (22:00)
[2022-12-25] MEDS: MORPHINE 4 MG/ML 1ML VIAL IV PRN ×3 (00:56→09:37)
[2022-12-25] MEDS: HEPARIN SOD (PORCINE) 5000UNITS/ML 1ML VIAL/SYRINGE SC SCH (04:34)
[2022-12-25 06:00] VITALS: BP 129/76
[2022-12-25 08:43] LABS: ALBUMIN 2.3 G/DL (3.2-5.2); ALKALINE PHOSPHATASE 118 U/L (46-116); ALT/SGPT 78 U/L (7.0-40); AST/SGOT 26 U/L (<34); BILIRUBIN,TOTAL 0.4 MG/DL (0.3-1.2); BLOOD UREA NITROGEN 9 MG/DL (9-23); CALCIUM LEVEL 7.6 MG/DL (8.5-10.1); CARBON DIOXIDE LEVEL 25 MMOL/L (20-31); CHLORIDE LEVEL 104 MMOL/L (98-107); CREATININE FOR GFR 0.54 MG/DL (0.55-1.30); GLOMERULAR FILTRATION RATE > 60.0 (>58); GLUCOSE, FASTING 97 MG/DL (60-100); HEMATOCRIT 33.7 % (36.0-47.0); HEMOGLOBIN 11.3 g/dl (12.0-15.5); MEAN CORPUSCULAR HEMOGLOBIN 31.5 pg (27.0-33.0); MEAN CORPUSCULAR HGB CONC 33.5 g/dl (32.0-36.5); MEAN CORPUSCULAR VOLUME 93.9 fl (80.0-96.0); PLATELET COUNT, AUTOMATED 265 10^3/uL (150-450); POTASSIUM SERUM 3.5 MMOL/L (3.5-5.1); RED BLOOD COUNT 3.59 10^6/uL (4.00-5.40); SODIUM LEVEL 135 MMOL/L (136-145); TOTAL PROTEIN 5.1 G/DL (5.7-8.2); WHITE BLOOD COUNT 10.2 10^3/uL (4.0-10.0)
[2022-12-25] MEDS: NICOTINE 7 MG/24 HR TRANSDERMAL TD SCH (09:00)
[2022-12-25 09:37] VITALS: BP 125/72
[2022-12-25] MEDS ORDERED: CEFD300C41 PO (10:31)
[2022-12-25] MEDS ORDERED: VENTAER INH (10:43)
[2022-12-25] MEDS ORDERED: ADVA115A INH (10:43)
[2022-12-25] MEDS ORDERED: MELO15TA28 PO (11:30)
== END 2022-12-25 12:15 | disposition home or self-care (01) | DRG 720 ==
LOC: M ED 18:41 → M ED INP 23:27 → ENRESERV 12-24 01:19 → M MS5PR 12-24 02:33
PROVIDERS: ADMIT Internal Medicine; ATTEND Internal Medicine
DX: A41.9 Sepsis, unspecified organism (principal); N10 Acute pyelonephritis; J45.909 Unspecified asthma, uncomplicated; F32.A Depression, unspecified; F17.200 Nicotine dependence, unspecified, uncomplicated; B96.29 Other Escherichia coli [E. coli] as the cause of diseases classified elsewhere

== ENCOUNTER 2023-03-25 08:55 | Emergency (ER) | payer OTHER ==
[~2023-03-25] VITALS: Ht 167.6 cm; Wt 63.6 kg
[~2023-03-25 08:55] MED LIST changes: +ADVA115A INH; +CEFD300C41 PO; +MELO15TA28 PO; +VENTAER INH
[2023-03-25] MEDS ORDERED: NS 1,000 ML IV ONE (09:15)
[2023-03-25 09:35] LABS: BASO % 0.5 % (0.0-1.0); EOS % 0.5 % (0.0-3.0); HEMATOCRIT 38.8 % (36.0-47.0); LYMPH # 1.7 10^3/uL (1.5-5.0); LYMPH % 21.8 % (24.0-44.0); MEAN CORPUSCULAR HEMOGLOBIN 30.2 pg (27.0-33.0); MEAN CORPUSCULAR HGB CONC 33.5 g/dl (32.0-36.5); MEAN CORPUSCULAR VOLUME 90.2 fl (80.0-96.0); MONO # 0.3 10^3/uL (0.0-0.8); MONO % 4.1 % (2.0-8.0); NEUTROPHILS # 5.7 10^3/uL (1.5-8.5); NEUTROPHILS % 72.8 % (36.0-66.0); PLATELET COUNT, AUTOMATED 302 10^3/uL (150-450); WHITE BLOOD COUNT 7.8 10^3/uL (4.0-10.0)
[2023-03-25 10:00] LABS: BLOOD UREA NITROGEN 16 MG/DL (9-23); CALCIUM LEVEL 9.2 MG/DL (8.5-10.1); CARBON DIOXIDE LEVEL 26 MMOL/L (20-31); CHLORIDE LEVEL 107 MMOL/L (98-107); CREATININE FOR GFR 0.82 MG/DL (0.55-1.30); GLOMERULAR FILTRATION RATE > 60.0 (>58); GLUCOSE, FASTING 66 MG/DL (60-100); MAGNESIUM LEVEL 2.2 MG/DL (1.8-2.4); POTASSIUM SERUM 3.4 MMOL/L (3.5-5.1); SODIUM LEVEL 141 MMOL/L (136-145)
[2023-03-25 10:02] LABS: FREE T4 1.27 NG/DL (0.89-1.76); THYROID STIMULATING HORMONE 0.249 uIU/ML (0.55-4.78)
[2023-03-25] MEDS ORDERED: POTASSIUM CHLORIDE 10MEQ SR TABLET PO ONE (10:10)
[2023-03-25 10:14] LABS: HCG, SERUM QUALITATIVE NEGATIVE (NEGATIVE)
[2023-03-25 12:45] VITALS: BP 160/80; TEMP 97.2; O2SAT 100
== END 2023-03-25 12:48 | disposition home or self-care (01) ==
LOC: M ED 08:55
DX: R53.83 Other fatigue (principal); I51.0 Cardiac septal defect, acquired; F17.200 Nicotine dependence, unspecified, uncomplicated; F19.10 Other psychoactive substance abuse, uncomplicated; Z79.52 Long term (current) use of systemic steroids; Z79.899 Other long term (current) drug therapy

== ENCOUNTER 2023-05-31 18:19 | Emergency (ER) | payer OTHER ==
[~2023-05-31] VITALS: Ht 167.6 cm; Wt 64.1 kg
[2023-05-31 18:19] VITALS: BP 144/84; TEMP 97.5; O2SAT 100
[~2023-05-31 18:19] MED LIST changes: -OCTR100I IV; +OCTR100I11 IV
[2023-05-31] MEDS ORDERED: FLUORESCEIN OPHTH 1MG STRIP OS ONE (20:00)
[2023-05-31] MEDS ORDERED: PROPARACAINE 0.5% OPHTH SOL 15ML OS ONE (20:00)
[2023-05-31] MEDS ORDERED: CYCLOPENTOLATE 1% OPHTH SOLN 2ML BTL OS ONE (20:55)
[2023-05-31] MEDS ORDERED: MOXI0.5S OS (22:18)
[2023-05-31] MEDS ORDERED: PREDOPD OS (22:18)
[2023-05-31] MEDS ORDERED: NORCO, ANEXSIA 5/325MG TABLET (HYDROcodone/ACETAMINOPHEN) PO ONE (22:20)
== END 2023-05-31 22:32 | disposition home or self-care (01) ==
LOC: M ED 18:19
DX: H20.9 Unspecified iridocyclitis (principal); H57.12 Ocular pain, left eye; F17.200 Nicotine dependence, unspecified, uncomplicated; F41.9 Anxiety disorder, unspecified; F32.A Depression, unspecified; Z79.2 Long term (current) use of antibiotics; Z79.52 Long term (current) use of systemic steroids; Z79.899 Other long term (current) drug therapy

== ENCOUNTER → 2023-06-02 | Outpatient (CLI) | payer OTHER ==
[~2023-06-02] MED LIST changes: +MOXI0.5S OS; +PREDOPD OS
[2023-06-02 15:01] LABS: BASO % 0.7 % (0.0-1.0); EOS # 0.2 10^3/uL (0.0-0.5); EOS % 2.5 % (0.0-3.0); HEMATOCRIT 40.9 % (36.0-47.0); HEMOGLOBIN 12.9 g/dl (12.0-15.5); LYMPH # 2.9 10^3/uL (1.5-5.0); LYMPH % 47.4 % (24.0-44.0); MEAN CORPUSCULAR HEMOGLOBIN 29.9 pg (27.0-33.0); MEAN CORPUSCULAR HGB CONC 31.5 g/dl (32.0-36.5); MEAN CORPUSCULAR VOLUME 94.7 fl (80.0-96.0); MONO # 0.4 10^3/uL (0.0-0.8); MONO % 6.6 % (2.0-8.0); NEUTROPHILS # 2.6 10^3/uL (1.5-8.5); NEUTROPHILS % 42.6 % (36.0-66.0); PLATELET COUNT, AUTOMATED 318 10^3/uL (150-450); RED BLOOD COUNT 4.32 10^6/uL (4.00-5.40); WHITE BLOOD COUNT 6.1 10^3/uL (4.0-10.0)
[2023-06-02 15:21] LABS: ERYTHROCYTE SEDIMENTATION RATE 3 mm/hr (0-20)
[2023-06-02 15:23] LABS: C REACTIVE PROTEIN QUANTITATIV < 0.40 MG/DL (<1.0)
[2023-06-02 15:24] LABS: BLOOD UREA NITROGEN 16 MG/DL (9-23); CALCIUM LEVEL 8.7 MG/DL (8.5-10.1); CARBON DIOXIDE LEVEL 30 MMOL/L (20-31); CHLORIDE LEVEL 107 MMOL/L (98-107); CREATININE FOR GFR 0.81 MG/DL (0.55-1.30); GLOMERULAR FILTRATION RATE > 60.0 (>58); GLUCOSE, FASTING 85 MG/DL (60-100); POTASSIUM SERUM 4.6 MMOL/L (3.5-5.1); SODIUM LEVEL 143 MMOL/L (136-145)
[2023-06-02 15:26] LABS: FERRITIN 7.8 NG/ML (7.3-270.7)
== END ==
LOC: M PLALAB 10:12
PROVIDERS: ATTEND Family Medicine
DX: L40.50 Arthropathic psoriasis, unspecified (principal); R53.82 Chronic fatigue, unspecified; M25.50 Pain in unspecified joint